=== PATIENT | male | born 1955 | race Hispanic/Latino ===

== ENCOUNTER 2018-02-21 21:26 | Inpatient (IN) | payer MEDICARE ==
[2018-02-21] MEDS ORDERED: DUONEB *Not for PRN Use IH ONE (21:34)
[2018-02-21 21:53] LABS: Basophils # (Auto) 0.1 K/mm3 (0.0-0.1); Basophils % (Auto) 0.4 % (0.0-1.8); Eosinophils # (Auto) 0.1 K/mm3 (0.0-0.4); Hematocrit 33.6 % (35.5-45.6); Lymphocytes % (Auto) 6.6 % (13.4-35.0); Mean Corpuscular HGB Conc 33 % (32-34); Mean Corpuscular Hemoglobin 34 pg (28-32); Mean Corpuscular Volume 103 fl (84-94); Monocytes # (Auto) 0.8 K/mm3 (0.0-0.8); Monocytes % (Auto) 5.6 % (0.0-7.3); Platelet Count 198 K/mm3 (140-440); Red Blood Count 3.25 M/mm3 (3.65-5.03); Red Cell Distribution Width 13.8 % (13.2-15.2)
--- NOTE | 2018-02-21 22:01 | Emergency Department Report ---
HPI - General Chief Complaint: Dyspnea/Respdistress Time Seen by Provider: 02/21/18 21:41 - HPI HPI: 62-year-old male presents to the emergency department via EMS from home with complaint of shortness of breath that he says started about 3 hours prior to presentation. He has a history of insulin-dependent diabetes, hypertension and chronic kidney disease on hemodialysis on Thursday/Thursday/ Thursday. He has not missed any of his dialysis sessions. EMS found the patient to have a pulse ox of about 60 upon arrival. He was given supplemental oxygen and CPAP and it went up to about 81%. He got a facemask when he got here and it went up into the high 90s. He denies any chest pain. He denies any lower extremity swelling. He has not taken anything for her symptoms were presentation. He does not have a an inhaler or nebulizer at home. His director clinical research is Dr. Hernández and his primary care physician is actually an petal cutter, Dr. Wu. ED Past Medical Hx - Past Medical History Previous Medical History?: Yes Hx Hypertension: Yes Hx Diabetes: Yes Hx Renal Disease: Yes (M, W, F) Hx Kidney Stones: Yes Hx Psychiatric Treatment: Yes (Depression, Schizophrenia) - Surgical History Past Surgical History?: Yes Additional Surgical History: AV fistula to right arm - Social History Smoking Status: Never Smoker Substance Use Type: None - Medications Home Medications: Home Medications Medication Instructions Recorded Confirmed Last Taken Type Asenapine Maleate [Saphris] 10 mg SL QPM 11/09/17 02/21/18 11/08/17 History Carvedilol [Coreg] 25 mg PO BID 11/09/17 02/21/18 11/08/17 History Cinacalcet [Sensipar] 30 mg PO QDAY 11/09/17 02/21/18 11/08/17 History Escitalopram Oxalate [Lexapro] 20 mg PO DAILY 11/09/17 02/21/18 11/08/17 History Furosemide [Lasix TAB] 40 mg PO QDAY 11/09/17 02/21/18 11/08/17 History ISOSORBIDE MONOnitrate [Imdur ER] 30 mg PO DAILY 11/09/17 02/21/18 11/08/17 History Insulin Lispro [Humalog 100 30 units SUB-Q BID 11/09/17 02/21/18 11/08/17 History UNITS/ML Kwikpen] Sevelamer Carbonate [Renvela] 2 tab PO TIDWM 11/09/17 02/21/18 11/08/17 History Sodium Bicarbonate 2 tab PO BID 11/09/17 02/21/18 11/08/17 History Sucroferric Oxyhydroxide [Velphoro] 3 tab PO TIDWM 11/09/17 02/21/18 11/08/17 History ED Review of Systems ROS: Stated complaint: AUTUMN Other details as noted in HPI Comment: All other systems reviewed and negative Constitutional: denies: chills, fever Eyes: denies: eye pain, eye discharge, vision change ENT: denies: ear pain, throat pain Respiratory: cough, shortness of breath Cardiovascular: denies: chest pain, palpitations Gastrointestinal: denies: abdominal pain, nausea, diarrhea Genitourinary: denies: urgency, dysuria Musculoskeletal: denies: back pain, joint swelling, arthralgia Skin: denies: rash, lesions Neurological: denies: headache, weakness, paresthesias Physical Exam - Physical Exam Vital Signs: Vital Signs 02/21/18 02/21/18 02/21/18 21:28 21:41 21:43 Temperature 98.7 F Pulse Rate 85 79 Pulse Rate [ 78 Anterior Bilateral Throughout] Respiratory 24 21 Rate Respiratory 30 H Rate [Anterior Bilateral Throughout] Blood Pressure 190/69 O2 Sat by Pulse 81 L 93 Oximetry 02/21/18 02/21/18 21:45 21:56 Temperature Pulse Rate 74 95 H Pulse Rate [ Anterior Bilateral Throughout] Respiratory 37 H 24 Rate Respiratory Rate [Anterior Bilateral Throughout] Blood Pressure 173/60 173/60 O2 Sat by Pulse 99 81 L Oximetry Physical Exam: GENERAL: The patient is well-developed well-nourished. HENT: Normocephalic. Atraumatic. Patient has moist mucous membranes. EYES: Extraocular motions are intact. Pupils equal reactive to light bilaterally. NECK: Supple. Trachea is midline. CHEST/LUNGS: Coarse breath sounds with the chest. There is some tachypnea and accessory muscle use with some conversational dyspnea. There is respiratory distress noted. HEART/CARDIOVASCULAR: Regular. There is no tachycardia. There is no murmur. ABDOMEN: Abdomen is soft, nontender. Patient has normal bowel sounds. There is no abdominal distention. SKIN: There is moderate nonpitting edema to the bilateral lower extremities. NEURO: The patient is awake, alert, and oriented. The patient is cooperative. The patient has no focal neurologic deficits. MUSCULOSKELETAL: There is no tenderness or deformity. There is no evidence of acute injury. ED Course Vital Signs 02/21/18 02/21/18 02/21/18 21:28 21:41 21:43 Temperature 98.7 F Pulse Rate 85 79 Pulse Rate [ 78 Anterior Bilateral Throughout] Respiratory 24 21 Rate Respiratory 30 H Rate [Anterior Bilateral Throughout] Blood Pressure 190/69 O2 Sat by Pulse 81 L 93 Oximetry 02/21/18 02/21/18 21:45 21:56 Temperature Pulse Rate 74 95 H Pulse Rate [ Anterior Bilateral Throughout] Respiratory 37 H 24 Rate Respiratory Rate [Anterior Bilateral Throughout] Blood Pressure 173/60 173/60 O2 Sat by Pulse 99 81 L Oximetry - ABG Interpretation Ph: 7.26 PCO2: 55 PO2: 170 Bicarbonate: 25 Interpretation: respiratory acidosis ED Medical Decision Making - Lab Data Result diagrams: 02/21/18 21:38 02/21/18 21:38 - EKG Data -: EKG Interpreted by Me EKG shows normal: sinus rhythm (sinus arrhythmia), axis, intervals (prolonged CA interval, prolonged QT and QTC), QRS complexes (right bundle-branch block), ST-T waves Rate: normal - EKG Data When compared to previous EKG there are: no significant change Interpretation: unchanged when compared t (11/09/17) - Radiology Data Radiology results: image reviewed interpreted by me: Chest x-ray shows pulmonary vascular congestion but no overt pleural effusions or any obvious pneumonia. - Medical Decision Making Patient presented in some respiratory distress after being found with hypoxia in the 60s. He improved in route but still appeared in some distress upon presentation to the emergency department. He was placed on a nonrebreather and given breathing treatments and started to improve to where he could discuss his symptoms. His oxygen went up into the high 90s. He still had some tachypnea and increased work of breathing so he was placed on a BiPAP machine. With the BiPAP he says he is breathing much better and no longer appears in respiratory distress. His chest x-ray shows some vascular congestion. The patient has a potassium of 6.5 with a BUN of almost 100 and a creatinine of 9.5. For these reasons, I contacted his director clinical research service and spoke with Dr. James will get him dialysis this evening. His ABG shows some respiratory acidosis with hypercapnia. He has some mild hyperglycemia but does not appear to be in diabetic ketoacidosis or HHNK. The patient has been accepted for admission by the hospitalist, Dr Trevino. - Differential Diagnosis CHF, Pneumonia, PE, Asthma Critical Care Time: No Critical care attestation.: If time is entered above; I have spent that time in minutes in the direct care of this critically ill patient, excluding procedure time. ED Disposition Clinical Impression: Hyperkalemia, ESRD needing dialysis, Respiratory distress, Hypoxia, Hypercapnia Volume overload Qualifiers: Hypervolemia type: unspecified Qualified Code(s): E87.70 - Fluid overload, unspecified Disposition: -09 OP ADMIT IP TO THIS HOSP Is pt being admited?: Yes Condition: Fair Referrals: PRIMARY CARE, [Primary Care Provider] - 3-5 Days Time of Disposition: 23:53
[2018-02-21 22:11] LABS: Calcium 8.3 mg/dL (8.4-10.2)
[2018-02-21 22:14] LABS: Alanine Aminotransferase 7 units/L (7-56); Albumin 3.8 g/dL (3.9-5)
[2018-02-21 22:16] LABS: Bilirubin,Direct < 0.2 mg/dL (0-0.2)
--- NOTE | 2018-02-21 22:18 | XRay Report ---
FINAL REPORT EXAM: XR CHEST 1V AP HISTORY: SOB COMPARISON: None available. FINDINGS: Frontal view(s) of the chest obtained. Mild cardiac enlargement. Hazy opacities at the lung bases concerning for mild congestion. Possible trace effusions. No pneumothorax. IMPRESSION: Findings concerning for mild pulmonary congestion.
[2018-02-21] MEDS ORDERED: PROVENTIL IH ONE (22:20)
[2018-02-21] MEDS ORDERED: HumuLIN R IV ONE (22:20)
[2018-02-21] MEDS ORDERED: CALCIUM GLUCONATE 1,000 MG in NACL 0.9% 100 ML IV ONE (22:21)
[2018-02-21] MEDS ORDERED: D50W (25GM) Syringe IV ONE (22:21)
[2018-02-21] MEDS ORDERED: KIONEX PO ONE (22:21)
[2018-02-21] MEDS ORDERED: NACL 0.9% 100 ML IV PRN (22:47)
[2018-02-21 23:59] LABS: Calcium 8.4 mg/dL (8.4-10.2)
[2018-02-22] MEDS ORDERED: ZOFRAN IV PRN (00:29)
[2018-02-22] MEDS ORDERED: PERCOCET 5/325 PO PRN (00:29)
[2018-02-22] MEDS ORDERED: SODIUM CHLORIDE FLUSH SYRINGE 10 ML IV PRN (00:29)
[2018-02-22] MEDS ORDERED: TYLENOL PO PRN (00:29)
[2018-02-22] MEDS ORDERED: D50W (25GM) Syringe IV PRN (00:32)
--- NOTE | 2018-02-22 01:33 | History and Physical Report ---
History of Present Illness Date of examination: 02/22/18 Date of admission: 02/22/18 00:29 Chief complaint: Shortness of breath History of present illness: Patient is a 72 year old male with history of end-stage renal disease on hemodialysis, who was brought to the ED via EMS on account of 4 hours history of worsening shortness of breath. He also admitted to dizziness but no headaches, nausea, vomiting, syncope or loss of consciousness. He denies chest pain, fever, chills, cough, palpitations, leg swelling, orthopnea or PND. No reported history of missed dialysis. When EMS arrived at his home, his oxygen saturation was noted to be at 60, which slightly improved on CPAP. Past History Past Medical History: diabetes, dialysis (on M/W/), ESRD, hypertension, other ( depression and schizophrenia) Past Surgical History: Other (AV fistula in right arm) Social history: smoking (ex-smoker, quitted in 1989. He admits to occasional alcohol use but denies illicit drug use) Family history: other (reviewed and noncontributory) Medications and Allergies Allergies Allergy/AdvReac Type Severity Reaction Status Date / Time No Known Allergies Allergy Verified 11/09/17 07:49 Home Medications Medication Instructions Recorded Confirmed Last Taken Type Asenapine Maleate [Saphris] 10 mg SL QPM 11/09/17 02/21/18 11/08/17 History Carvedilol [Coreg] 25 mg PO BID 11/09/17 02/21/18 11/08/17 History Cinacalcet [Sensipar] 30 mg PO QDAY 11/09/17 02/21/18 11/08/17 History Escitalopram Oxalate [Lexapro] 20 mg PO DAILY 11/09/17 02/21/18 11/08/17 History Furosemide [Lasix TAB] 40 mg PO QDAY 11/09/17 02/21/18 11/08/17 History ISOSORBIDE MONOnitrate [Imdur ER] 30 mg PO DAILY 11/09/17 02/21/18 11/08/17 History Insulin Lispro [Humalog 100 30 units SUB-Q BID 11/09/17 02/21/18 11/08/17 History UNITS/ML Kwikpen] Sevelamer Carbonate [Renvela] 2 tab PO TIDWM 11/09/17 02/21/1811/08/18 History Sodium Bicarbonate 2 tab PO BID 11/09/17 02/21/18 11/08/17 History Sucroferric Oxyhydroxide [Velphoro] 3 tab PO TIDWM 11/09/17 02/21/18 11/08/17 History Active Meds: Active Medications Acetaminophen (Tylenol) 650 mg PO Q4H PRN PRN Reason: Pain MILD(1-3)/Fever >100.5/LEONARD Albuterol/Ipratropium (Duoneb *Not For Prn Use*) 1 ampul IH Q6HRT SACHI Dextrose (D50w (25gm) Syringe) 50 ml IV PRN PRN PRN Reason: Hypoglycemia Heparin Sodium (Porcine) (Heparin) 5,000 unit SUB-Q Q8H SACHI Hydralazine HCl (Apresoline) 10 mg IV Q4H PRN PRN Reason: Blood Pressure Sodium Chloride (Nacl 0.9%) 100 mls @ 999 mls/hr IV BENJAMIN PRN PRN Reason: Hypotension Insulin Glargine (Lantus) 15 units SUB-Q DAILY SACHI Insulin Human Lispro (Humalog) 0 unit SUB-Q ACHS SACHI; Protocol Ondansetron HCl (Zofran) 4 mg IV Q8H PRN PRN Reason: Nausea And Vomiting Oxycodone/Acetaminophen (Percocet 5/325) 1 tab PO Q6H PRN PRN Reason: Pain, Moderate (4-6) Sodium Chloride (Sodium Chloride Flush Syringe 10 Ml) 10 ml IV BID SACHI Sodium Chloride (Sodium Chloride Flush Syringe 10 Ml) 10 ml IV PRN PRN PRN Reason: LINE FLUSH Review of Systems All systems: negative (except as documented in the HPI, all other systems were reviewed and negative.) Exam - Constitutional Vitals: Temp Pulse Resp BP Pulse Ox 98.7 F 56 L 24 145/58 99 02/21/18 21:28 02/22/18 00:30 02/22/18 00:30 02/22/18 00:30 02/22/18 00:30 General appearance: Present: no acute distress, other (on BiPAP) - EENT Eyes: Present: PERRL ENT: hearing intact, clear oral mucosa - Neck Neck: Present: supple, normal ROM - Respiratory Respiratory effort: normal Respiratory: bilateral: diminished, rales - Cardiovascular Rhythm: regular Heart Sounds: Present: S1 & S2. Absent: rub, click - Extremities Extremities: pulses symmetrical Extremity abnormal: edema (in BLE) - Abdominal General gastrointestinal: Present: soft, non-tender, non-distended, normal bowel sounds - Integumentary Integumentary: Present: warm, dry - Musculoskeletal Musculoskeletal: gait normal, strength equal bilaterally - Neurologic Neurologic: CNII-XII intact, moves all extremities Results - Labs CBC & Chem 7: 02/21/18 21:38 02/21/18 23:26 Labs: Laboratory Last Values WBC 14.5 K/mm3 (4.5-11.0) H 02/21/18 21:38 RBC 3.25 M/mm3 (3.65-5.03) L 02/21/18 21:38 Hgb 11.0 gm/dl (11.8-15.2) L 02/21/18 21:38 Hct 33.6 % (35.5-45.6) L 02/21/18 21:38 MCV 103 fl (84-94) H 02/21/18 21:38 MCH 34 pg (28-32) H 02/21/18 21:38 MCHC 33 % (32-34) 02/21/18 21:38 RDW 13.8 % (13.2-15.2) 02/21/18 21:38 Plt Count 198 K/mm3 (140-440) 02/21/18 21:38 Lymph % (Auto) 6.6 % (13.4-35.0) L 02/21/18 21:38 [place] % (Auto) 5.6 % (0.0-7.3) 02/21/18 21:38 Eos % (Auto) 1.0 % (0.0-4.3) 02/21/18 21:38 Baso % (Auto) 0.4 % (0.0-1.8) 02/21/18 21:38 Lymph # 1.0 K/mm3 (1.2-5.4) L 02/21/18 21:38 [place] # 0.8 K/mm3 (0.0-0.8) 02/21/18 21:38 Eos # 0.1 K/mm3 (0.0-0.4) 02/21/18 21:38 Baso # 0.1 K/mm3 (0.0-0.1) 02/21/18 21:38 Seg Neutrophils % 86.4 % (40.0-70.0) H 02/21/18 21:38 Seg Neutrophils # 12.5 K/mm3 (1.8-7.7) H 02/21/18 21:38 D-Dimer 567.27 ng/mlDDU (0-234) H 02/21/18 21:44 POC ABG pH 7.261 (7.35-7.45) L 02/21/18 21:40 POC ABG pCO2 55.6 (35-45) H 02/21/18 21:40 POC ABG pO2 170 (80-105) H 02/21/18 21:40 POC ABG HCO3 25.0 02/21/18 21:40 POC ABG Total CO2 27 02/21/18 21:40 POC ABG O2 Sat 99 02/21/18 21:40 POC ABG Base Excess -2 02/21/18 21:40 FiO2 100 % 02/21/18 21:40 Sodium 142 mmol/L (137-145) 02/21/18 23:26 Potassium 5.9 mmol/L (3.6-5.0) H 02/21/18 23:26 Chloride 100.2 mmol/L (98-107) 02/21/18 23:26 Carbon Dioxide 26 mmol/L (22-30) 02/21/18 23:26 Anion Gap 22 mmol/L 02/21/18 23:26 BUN 56 mg/dL (9-20) H 02/21/18 23:26 Creatinine 8.9 mg/dL (0.8-1.5) H 02/21/18 23:26 Estimated GFR 6 ml/min 02/21/18 23:26 BUN/Creatinine Ratio 6 % 02/21/18 23:26 Glucose 185 mg/dL (75-100) H 02/21/18 23:26 POC Glucose 218 (70-105) H 02/21/18 22:51 Calcium 8.4 mg/dL (8.4-10.2) 02/21/18 23:26 Total Bilirubin 0.40 mg/dL (0.1-1.2) 02/21/18 21:44 Direct Bilirubin < 0.2 mg/dL (0-0.2) 02/21/18 21:44 Indirect Bilirubin 0.2 mg/dL 02/21/18 21:44 AST 11 units/L (5-40) 02/21/18 21:44 ALT 7 units/L (7-56) 02/21/18 21:44 Alkaline Phosphatase 113 units/L (35-129) 02/21/18 21:44 NT-Pro-B Natriuret Pep 68161 pg/mL (0-900) H 02/21/18 21:38 Total Protein 6.8 g/dL (6.3-8.2) 02/21/18 21:44 Albumin 3.8 g/dL (3.9-5) L 02/21/18 21:44 Albumin/Globulin Ratio 1.3 % 02/21/18 21:44 Assessment and Plan Assessment and plan: End-stage renal disease with pulmonary edema -Nephrology consulted for emergency dialysis Acute respiratory failure with hypoxia -On BiPAP -Patient to undergo emergency dialysis Hyperkalemia -Patient received calcium gluconate in the ED which improved his potassium level from 6.5 to 5.9 -He is to undergo emergency dialysis SIRS, likely secondary to non-infectious cause -We will monitor patient clinically Hypertensive emergency with SBP of more than 180 -Patient will be placed on both scheduled and when necessary antihypertensives Insulin-dependent diabetes mellitus type 2 with hyperglycemia -Patient will be placed on basal and prandial insulin regimen Prophylaxis -DVT prophylaxis with heparin 40 minutes spent coordinating care
[2018-02-22] MEDS ORDERED: NACL 0.9% 100 ML IV PRN (01:34)
[2018-02-22] MEDS: DUONEB *Not for PRN Use IH SCH ×4 (03:17→20:39)
[2018-02-22] MEDS ORDERED: NACL 0.9 (PRIMING MACHINE ONLY DIALYSIS) MC ONE (04:05)
[2018-02-22] MEDS: HEPARIN SUB-Q SCH ×3 (05:45→17:26)
[2018-02-22 07:18] LABS: Calcium 8.7 mg/dL (8.4-10.2)
[2018-02-22] MEDS: HumaLOG SUB-Q SCH ×4 (07:30→22:02)
--- NOTE | 2018-02-22 09:17 | Progress Note ---
Assessment and Plan End-stage renal disease with pulmonary edema -Nephrology consulted for emergency dialysis Acute respiratory failure with hypoxia -On BiPAP -Patient to undergo emergency dialysis Hyperkalemia -Patient received calcium gluconate in the ED which improved his potassium level from 6.5 to 5.9 -He is to undergo emergency dialysis SIRS, likely secondary to non-infectious cause -We will monitor patient clinically Hypertensive emergency with SBP of more than 180 -Patient will be placed on both scheduled and when necessary antihypertensives Insulin-dependent diabetes mellitus type 2 with hyperglycemia -SSI - consistent CHO diet Prophylaxis -DVT prophylaxis with heparin Subjective Date of service: 02/22/18 Principal diagnosis: Pul edema from ESRD Interval history: Still short of breath Objective - Constitutional Vitals: Vital Signs - 12hr 02/21/18 02/21/18 02/21/18 21:28 21:41 21:43 Temperature 98.7 F Pulse Rate 85 79 Pulse Rate [ 78 Anterior Bilateral Throughout] Respiratory 24 21 Rate Respiratory 30 H Rate [Anterior Bilateral Throughout] Blood Pressure 190/69 Blood Pressure [Left] O2 Sat by Pulse 81 L 93 Oximetry O2 Sat by Pulse Oximetry [ Posterior Bilateral Bases ] 02/21/18 02/21/18 02/21/18 21:45 21:56 22:00 Temperature Pulse Rate 74 95 H 67 Pulse Rate [ Anterior Bilateral Throughout] Respiratory 37 H 24 30 H Rate Respiratory Rate [Anterior Bilateral Throughout] Blood Pressure 173/60 173/60 173/60 Blood Pressure [Left] O2 Sat by Pulse 99 81 L 99 Oximetry O2 Sat by Pulse Oximetry [ Posterior Bilateral Bases ] 02/21/18 02/21/18 02/21/18 22:15 22:30 22:40 Temperature Pulse Rate 63 61 60 Pulse Rate [ Anterior Bilateral Throughout] Respiratory 19 25 H 20 Rate Respiratory Rate [Anterior Bilateral Throughout] Blood Pressure 144/51 129/48 Blood Pressure 129/48 [Left] O2 Sat by Pulse 97 99 98 Oximetry O2 Sat by Pulse Oximetry [ Posterior Bilateral Bases ] 02/21/18 02/21/18 02/21/18 22:46 23:00 23:16 Temperature Pulse Rate 59 L 57 L 56 L Pulse Rate [ Anterior Bilateral Throughout] Respiratory 30 H 14 19 Rate Respiratory Rate [Anterior Bilateral Throughout] Blood Pressure 123/44 123/44 136/44 Blood Pressure [Left] O2 Sat by Pulse 98 98 99 Oximetry O2 Sat by Pulse Oximetry [ Posterior Bilateral Bases ] 02/21/18 02/21/18 02/21/18 23:30 23:45 23:51 Temperature Pulse Rate 53 L 56 L 56 L Pulse Rate [ Anterior Bilateral Throughout] Respiratory 19 16 23 Rate Respiratory Rate [Anterior Bilateral Throughout] Blood Pressure 136/44 145/55 145/55 Blood Pressure [Left] O2 Sat by Pulse 99 99 99 Oximetry O2 Sat by Pulse Oximetry [ Posterior Bilateral Bases ] 02/22/18 02/22/18 02/22/18 00:00 00:06 00:15 Temperature Pulse Rate 56 L 56 L 56 L Pulse Rate [ Anterior Bilateral Throughout] Respiratory 21 20 23 Rate Respiratory Rate [Anterior Bilateral Throughout] Blood Pressure 147/58 145/55 148/61 Blood Pressure [Left] O2 Sat by Pulse 99 99 99 Oximetry O2 Sat by Pulse Oximetry [ Posterior Bilateral Bases ] 02/22/18 02/22/18 02/22/18 00:30 01:15 01:30 Temperature 98.7 F Pulse Rate 56 L 61 61 Pulse Rate [ Anterior Bilateral Throughout] Respiratory 24 20 Rate Respiratory Rate [Anterior Bilateral Throughout] Blood Pressure 145/58 187/87 165/67 Blood Pressure [Left] O2 Sat by Pulse 99 Oximetry O2 Sat by Pulse 99 Oximetry [ Posterior Bilateral Bases ] 02/22/18 02/22/18 02/22/18 01:45 02:00 02:15 Temperature Pulse Rate 65 60 64 Pulse Rate [ Anterior Bilateral Throughout] Respiratory Rate Respiratory Rate [Anterior Bilateral Throughout] Blood Pressure 163/79 166/75 164/71 Blood Pressure [Left] O2 Sat by Pulse Oximetry O2 Sat by Pulse Oximetry [ Posterior Bilateral Bases ] 02/22/18 02/22/18 02/22/18 02:30 02:45 03:00 Temperature Pulse Rate 59 L 58 L 59 L Pulse Rate [ Anterior Bilateral Throughout] Respiratory Rate Respiratory Rate [Anterior Bilateral Throughout] Blood Pressure 171/78 164/72 163/73 Blood Pressure [Left] O2 Sat by Pulse Oximetry O2 Sat by Pulse Oximetry [ Posterior Bilateral Bases ] 02/22/18 02/22/18 02/22/18 03:15 03:30 03:45 Temperature Pulse Rate 59 L 59 L 58 L Pulse Rate [ Anterior Bilateral Throughout] Respiratory Rate Respiratory Rate [Anterior Bilateral Throughout] Blood Pressure 152/73 157/66 150/71 Blood Pressure [Left] O2 Sat by Pulse Oximetry O2 Sat by Pulse Oximetry [ Posterior Bilateral Bases ] 02/22/18 02/22/18 02/22/18 04:00 04:15 04:45 Temperature 98.1 F Pulse Rate 59 L 60 64 Pulse Rate [ Anterior Bilateral Throughout] Respiratory 16 Rate Respiratory Rate [Anterior Bilateral Throughout] Blood Pressure 143/71 159/69 166/78 Blood Pressure [Left] O2 Sat by Pulse Oximetry O2 Sat by Pulse 28 L Oximetry [ Posterior Bilateral Bases ] 02/22/18 02/22/18 02/22/18 08:12 08:15 08:20 Temperature Pulse Rate Pulse Rate [ 59 L 59 L Anterior Bilateral Throughout] Respiratory Rate Respiratory 20 20 Rate [Anterior Bilateral Throughout] Blood Pressure Blood Pressure [Left] O2 Sat by Pulse 100 Oximetry O2 Sat by Pulse Oximetry [ Posterior Bilateral Bases ] 02/22/18 09:14 Temperature 97.5 F L Pulse Rate 60 Pulse Rate [ Anterior Bilateral Throughout] Respiratory 18 Rate Respiratory Rate [Anterior Bilateral Throughout] Blood Pressure Blood Pressure 169/61 [Left] O2 Sat by Pulse 100 Oximetry O2 Sat by Pulse Oximetry [ Posterior Bilateral Bases ] General appearance: Present: no acute distress, well-nourished - EENT Eyes: PERRL, EOM intact Ears: bilateral: normal - Neck Neck: supple, normal ROM - Respiratory Respiratory effort: normal Respiratory: bilateral: CTA - Cardiovascular Rhythm: regular Heart Sounds: Present: S1 & S2. Absent: gallop, rub Extremities: pulses intact, No edema, normal color, Full ROM - Gastrointestinal General gastrointestinal: Present: soft, non-tender, non-distended, normal bowel sounds - Genitourinary Male genitourinary: normal - Integumentary Integumentary: clear, warm, dry - Musculoskeletal Musculoskeletal: 1, strength equal bilaterally - Neurologic Neurologic: moves all extremities - Psychiatric Psychiatric: memory intact, appropriate mood/affect, intact judgment & insight - Labs CBC & Chem 7: 02/21/18 21:38 02/22/18 06:25 Labs: Abnormal lab results 02/21/18 02/21/18 02/21/18 Range/Units 21:38 21:38 21:40 WBC 14.5 H (4.5-11.0) K/mm3 RBC 3.25 L (3.65-5.03) M/mm3 Hgb 11.0 L (11.8-15.2) gm/dl Hct 33.6 L (35.5-45.6) % MCV 103 H (84-94) fl MCH 34 H (28-32) pg Lymph % (Auto) 6.6 L (13.4-35.0) % Lymph # 1.0 L (1.2-5.4) K/mm3 Seg Neutrophils % 86.4 H (40.0-70.0) % Seg Neutrophils # 12.5 H (1.8-7.7) K/mm3 D-Dimer (0-234) ng/mlDDU POC ABG pH 7.261 L (7.35-7.45) POC ABG pCO2 55.6 H (35-45) POC ABG pO2 170 H (80-105) Potassium 6.5 H* (3.6-5.0) mmol/L Chloride 97.2 L (98-107) mmol/L BUN 53 H (9-20) mg/dL Creatinine 8.3 H (0.8-1.5) mg/dL Glucose 235 H (75-100) mg/dL POC Glucose (70-105) Calcium 8.3 L (8.4-10.2) mg/dL NT-Pro-B Natriuret Pep 09555 H (0-900) pg/mL Albumin (3.9-5) g/dL 02/21/1818 02/21/18 Range/Units 21:44 21:44 22:51 WBC (4.5-11.0) K/mm3 RBC (3.65-5.03) M/mm3 Hgb (11.8-15.2) gm/dl Hct (35.5-45.6) % MCV (84-94) fl MCH (28-32) pg Lymph % (Auto) (13.4-35.0) % Lymph # (1.2-5.4) K/mm3 Seg Neutrophils % (40.0-70.0) % Seg Neutrophils # (1.8-7.7) K/mm3 D-Dimer 567.27 H (0-234) ng/mlDDU POC ABG pH (7.35-7.45) POC ABG pCO2 (35-45) POC ABG pO2 (80-105) Potassium (3.6-5.0) mmol/L Chloride (98-107) mmol/L BUN (9-20) mg/dL Creatinine (0.8-1.5) mg/dL Glucose (75-100) mg/dL POC Glucose 218 H (70-105) Calcium (8.4-10.2) mg/dL NT-Pro-B Natriuret Pep (0-900) pg/mL Albumin 3.8 L (3.9-5) g/dL 02/21/18 02/22/18 02/22/18 Range/Units 23:26 06:05 06:25 WBC (4.5-11.0) K/mm3 RBC (3.65-5.03) M/mm3 Hgb (11.8-15.2) gm/dl Hct (35.5-45.6) % MCV (84-94) fl MCH (28-32) pg Lymph % (Auto) (13.4-35.0) % Lymph # (1.2-5.4) K/mm3 Seg Neutrophils % (40.0-70.0) % Seg Neutrophils # (1.8-7.7) K/mm3 D-Dimer (0-234) ng/mlDDU POC ABG pH (7.35-7.45) POC ABG pCO2 (35-45) POC ABG pO2 (80-105) Potassium 5.9 H (3.6-5.0) mmol/L Chloride 97.3 L (98-107) mmol/L BUN 56 H 33 H (9-20) mg/dL Creatinine 8.9 H 5.8 H (0.8-1.5) mg/dL Glucose 185 H 189 H (75-100) mg/dL POC Glucose 188 H (70-105) Calcium (8.4-10.2) mg/dL NT-Pro-B Natriuret Pep (0-900) pg/mL Albumin (3.9-5) g/dL
[2018-02-22] MEDS: LANTUS SUB-Q SCH (09:50)
[2018-02-22] MEDS: SODIUM CHLORIDE FLUSH SYRINGE 10 ML IV SCH (09:57)
--- NOTE | 2018-02-22 11:29 | Consultation ---
History of Present Illness - Reason for Consult Consult date: 02/22/18 end stage renal disease - History of Present Illness Mr. Cannon is a 62yo with ESRD on HD MWF who presented to the ED with progressive worsening of SOB. Upon arrival to the ED, patient was hypoxic requiring bipap. Labs obtained and patient was hyperkalemic - K 5.9 He is s/p STAT hemodialysis. He reports that his breathing is now comfortable. Mr. Cannon denies chest pain, fever, cough. He is noncomplaint with fluid restriction and frequently has intradialytic weight gains 4-5 liters. Past History Past Medical History: diabetes, dialysis (on M/W/F), ESRD, hypertension, other ( depression and schizophrenia) Past Surgical History: Other (AV fistula in right arm) Social history: smoking (ex-smoker, quitted in 1989. He admits to occasional alcohol use but denies illicit drug use) Family history: other (reviewed and noncontributory) Medications and Allergies Allergies Allergy/AdvReac Type Severity Reaction Status Date / Time No Known Allergies Allergy Verified 11/09/17 07:49 Home Medications Medication Instructions Recorded Confirmed Last Taken Type Asenapine Maleate [Saphris] 10 mg SL QPM 11/09/17 02/21/18 11/08/17 History Carvedilol [Coreg] 25 mg PO BID 11/09/17 02/21/18 11/08/17 History Cinacalcet [Sensipar] 30 mg PO QDAY 11/09/17 02/21/18 11/08/17 History Escitalopram Oxalate [Lexapro] 20 mg PO DAILY 11/09/17 02/21/18 11/08/17 History Furosemide [Lasix TAB] 40 mg PO QDAY 11/09/17 02/21/18 11/08/17 History ISOSORBIDE MONOnitrate [Imdur ER] 30 mg PO DAILY 11/09/17 02/21/18 11/08/17 History Insulin Lispro [Humalog 100 30 units SUB-Q BID 11/09/17 02/21/18 11/08/17 History UNITS/ML Kwikpen] Sevelamer Carbonate [Renvela] 2 tab PO TIDWM 11/09/17 02/21/18 11/08/17 History Sodium Bicarbonate 2 tab PO BID 11/09/17 02/21/1811/08/18 History Sucroferric Oxyhydroxide [Velphoro] 3 tab PO TIDWM 11/09/17 02/21/18 11/08/17 History Active Meds: Active Medications Acetaminophen (Tylenol) 650 mg PO Q4H PRN PRN Reason: Pain MILD(1-3)/Fever >100.5/LEONARD Albuterol/Ipratropium (Duoneb *Not For Prn Use*) 1 ampul IH Q6HRT [facility] Last Admin: 02/22/18 08:12 Dose: 1 ampul Dextrose (D50w (25gm) Syringe) 50 ml IV PRN PRN PRN Reason: Hypoglycemia Heparin Sodium (Porcine) (Heparin) 5,000 unit SUB-Q Q8H [facility] Last Admin: 02/22/18 09:55 Dose: 5,000 unit Hydralazine HCl (Apresoline) 10 mg IV Q4H PRN PRN Reason: Blood Pressure Sodium Chloride (Nacl 0.9%) 100 mls @ 999 mls/hr IV BENJAMIN PRN PRN Reason: Hypotension Insulin Glargine (Lantus) 15 units SUB-Q DAILY [facility] Last Admin: 02/22/18 09:50 Dose: 15 units Insulin Human Lispro (Humalog) 0 unit SUB-Q ACHS [facility]; Protocol Last Admin: 02/22/18 07:30 Dose: 2 unit Ondansetron HCl (Zofran) 4 mg IV Q8H PRN PRN Reason: Nausea And Vomiting Oxycodone/Acetaminophen (Percocet 5/325) 1 tab PO Q6H PRN PRN Reason: Pain, Moderate (4-6) Sodium Chloride (Sodium Chloride Flush Syringe 10 Ml) 10 ml IV BID [facility] Last Admin: 02/22/18 09:57 Dose: 10 ml Sodium Chloride (Sodium Chloride Flush Syringe 10 Ml) 10 ml IV PRN PRN PRN Reason: LINE FLUSH Review of Systems All systems: negative Exam - Vital Signs Vital signs: Vital Signs Temp Pulse Resp BP Pulse Ox 98.7 F 85 24 190/69 81 L 02/21/18 21:28 02/21/18 21:28 02/21/18 21:28 02/21/18 21:28 02/21/18 21:28 - General Appearance General appearance: well-developed, well-nourished EENT: ATNC Respiratory: Clear to Ascultation Heart: regular, S1S2 Gastrointestinal: Present: normal. Absent: tenderness, distended Integumentary: no rash, warm and dry Neurologic: alert and oriented x3 Musculoskeletal: Present: other (trace edema) Psychiatric: mood/affect appropriate, cooperative Results - Lab Results 02/21/18 21:38 02/22/18 06:25 Most recent lab results Calcium 8.7 mg/dL (8.4-10.2) 02/22/18 06:25 Assessment and Plan Impression: * End stage renal disease on HD * Acute hypoxic respiratory failure secondary pulmonary edema * Hyperkalemia * Hypertension * Anemia secondary to ESRD * Secondary hyperparathryoidism * Noncomplicance Plan: * Patient is s/p HD overnight/early am - he now breathing comfortably on room air * Continue MWF schedule and prn * Renal diet * Informed patient of risks of continued noncompliance w/ fluid restriction - respiratory failure requiring intubtation, * Father at bedside
[2018-02-22 15:39] LABS: Hepatitis A Antibody IgM Non-Reactive (NonReactive); Hepatitis B Core IgM Non-Reactive (NonReactive); Hepatitis B Surface Antigen Non-Reactive (Negative); Hepatitis C Virus Antibody Non-Reactive (NonReactive)
[2018-02-23] MEDS: DUONEB *Not for PRN Use IH SCH ×4 (02:32→20:19)
[2018-02-23] MEDS: HEPARIN SUB-Q SCH ×3 (07:03→18:36)
[2018-02-23] MEDS: SODIUM CHLORIDE FLUSH SYRINGE 10 ML IV SCH ×3 (07:04→23:02)
[2018-02-23 07:34] LABS: Basophils % (Auto) 0.5 % (0.0-1.8); Eosinophils # (Auto) 0.1 K/mm3 (0.0-0.4); Eosinophils % (Auto) 1.4 % (0.0-4.3); Hematocrit 30.7 % (35.5-45.6); Hemoglobin 10.7 gm/dl (11.8-15.2); Lymphocytes # (Auto) 1.2 K/mm3 (1.2-5.4); Lymphocytes % (Auto) 18.7 % (13.4-35.0); Mean Corpuscular HGB Conc 35 % (32-34); Mean Corpuscular Hemoglobin 36 pg (28-32); Mean Corpuscular Volume 102 fl (84-94); Monocytes # (Auto) 0.5 K/mm3 (0.0-0.8); Monocytes % (Auto) 8.1 % (0.0-7.3); Platelet Count 134 K/mm3 (140-440); Red Blood Count 3.01 M/mm3 (3.65-5.03); Red Cell Distribution Width 13.7 % (13.2-15.2)
[2018-02-23 07:58] LABS: Albumin 3.6 g/dL (3.9-5); Calcium 8.5 mg/dL (8.4-10.2)
[2018-02-23] MEDS: HumaLOG SUB-Q SCH ×4 (08:00→23:00)
[2018-02-23] MEDS: LANTUS SUB-Q SCH (10:02)
[2018-02-23] MEDS ORDERED: NACL 0.9% 100 ML IV PRN (10:26)
--- NOTE | 2018-02-23 10:27 | Progress Note ---
Assessment and Plan Impression: * End stage renal disease on HD * Acute hypoxic respiratory failure secondary pulmonary edema * Hyperkalemia * Hypertension * Anemia secondary to ESRD * Secondary hyperparathryoidism * Noncomplicance Plan: * Patient is s/p stat HD yesterday * Will plan for HD today * Continue MWF schedule * Renal diet * Patient is aware of risks of continued noncompliance w/ fluid restriction - respiratory failure requiring intubtation, Subjective Date of service: 02/23/18 Principal diagnosis: Pul edema from ESRD Interval history: Patient denies SOB. Objective - Vital Signs Vital signs: Vital Signs - 12hr 02/22/18 02/23/18 02/23/18 23:32 02:34 02:46 Temperature 97.5 F L Pulse Rate 64 Pulse Rate [ 64 74 Posterior Bilateral Bases ] Respiratory 20 Rate Respiratory 16 18 Rate [Posterior Bilateral Bases] Blood Pressure 163/69 O2 Sat by Pulse 93 Oximetry 02/23/18 02/23/18 02/23/18 04:32 04:34 08:24 Temperature 97.7 F Pulse Rate 62 Pulse Rate [ 62 Posterior Bilateral Bases ] Respiratory 20 Rate Respiratory 20 Rate [Posterior Bilateral Bases] Blood Pressure 179/63 O2 Sat by Pulse 95 98 Oximetry 02/23/18 08:34 Temperature Pulse Rate Pulse Rate [ 64 Posterior Bilateral Bases ] Respiratory Rate Respiratory 18 Rate [Posterior Bilateral Bases] Blood Pressure O2 Sat by Pulse Oximetry - General Appearance General appearance: well-developed, well-nourished EENT: ATNC Neck: no JVD Respiratory: Present: Clear to Ascultation Cardiology: regular, S1S2 Gastrointestinal: normal, no tenderness, no distended, obese Integumentary: no rash Neurologic: alert and oriented x3 Musculoskeletal: other (no edema) Psychiatric: cooperative - Lab 02/24/18 06:19 02/24/18 06:19 Most recent lab results Calcium 8.5 mg/dL (8.4-10.2) 02/23/18 07:04
--- NOTE | 2018-02-23 14:06 | Progress Note ---
Assessment and Plan Assessment and plan: Patient is a 72 year old male with history of end-stage renal disease on hemodialysis, who was brought to the ED via EMS on account of 4 hours history of worsening shortness of breath End-stage renal disease with pulmonary edema -Nephrology consulted for emergency dialysis Acute respiratory failure with hypoxia -On BiPAP -Patient to undergo emergency dialysis Hyperkalemia -Patient received calcium gluconate in the ED which improved his potassium level from 6.5 to 5.9 -He is to undergo emergency dialysis SIRS, likely secondary to non-infectious cause -We will monitor patient clinically Hypertensive emergency with SBP of more than 180 -Patient will be placed on both scheduled and when necessary antihypertensives Insulin-dependent diabetes mellitus type 2 with hyperglycemia -SSI - consistent CHO diet Prophylaxis -DVT prophylaxis with heparin Hospitalist Physical - Constitutional Vitals: Temp Pulse Resp BP Pulse Ox 98.0 F 61 20 184/72 98 02/23/18 11:00 02/23/18 14:00 02/23/18 11:00 02/23/18 14:00 02/23/18 08:24 General appearance: Present: no acute distress, well-nourished Results - Labs CBC & Chem 7: 02/23/18 07:04 02/23/18 07:04 Labs: Laboratory Last Values WBC 6.3 K/mm3 (4.5-11.0) 02/23/18 07:04 RBC 3.01 M/mm3 (3.65-5.03) L 02/23/18 07:04 Hgb 10.7 gm/dl (11.8-15.2) L 02/23/18 07:04 Hct 30.7 % (35.5-45.6) L 02/23/18 07:04 MCV 102 fl (84-94) H 02/23/18 07:04 MCH 36 pg (28-32) H 02/23/18 07:04 MCHC 35 % (32-34) H 02/23/18 07:04 RDW 13.7 % (13.2-15.2) 02/23/18 07:04 Plt Count 134 K/mm3 (140-440) L 02/23/18 07:04 Lymph % (Auto) 18.7 % (13.4-35.0) 02/23/18 07:04 [place] % (Auto) 8.1 % (0.0-7.3) H 02/23/18 07:04 Eos % (Auto) 1.4 % (0.0-4.3) 02/23/18 07:04 Baso % (Auto) 0.5 % (0.0-1.8) 02/23/18 07:04 Lymph # 1.2 K/mm3 (1.2-5.4) 02/23/18 07:04 [place] # 0.5 K/mm3 (0.0-0.8) 02/23/18 07:04 Eos # 0.1 K/mm3 (0.0-0.4) 02/23/18 07:04 Baso # 0.0 K/mm3 (0.0-0.1) 02/23/18 07:04 Seg Neutrophils % 71.3 % (40.0-70.0) H 02/23/18 07:04 Seg Neutrophils # 4.5 K/mm3 (1.8-7.7) 02/23/18 07:04 D-Dimer 567.27 ng/mlDDU (0-234) H 02/21/18 21:44 POC ABG pH 7.261 (7.35-7.45) L 02/21/18 21:40 POC ABG pCO2 55.6 (35-45) H 02/21/18 21:40 POC ABG pO2 170 (80-105) H 02/21/18 21:40 POC ABG HCO3 25.0 02/21/18 21:40 POC ABG Total CO2 27 02/21/18 21:40 POC ABG O2 Sat 99 02/21/18 21:40 POC ABG Base Excess -2 02/21/18 21:40 FiO2 100 % 02/21/18 21:40 Sodium 138 mmol/L (137-145) 02/23/18 07:04 Potassium 5.5 mmol/L (3.6-5.0) H 02/23/18 07:04 Chloride 96.1 mmol/L (98-107) L 02/23/18 07:04 Carbon Dioxide 23 mmol/L (22-30) 02/23/18 07:04 Anion Gap 24 mmol/L 02/23/18 07:04 BUN 55 mg/dL (9-20) H 02/23/18 07:04 Creatinine 7.7 mg/dL (0.8-1.5) H 02/23/18 07:04 Estimated GFR 7 ml/min 02/23/18 07:04 BUN/Creatinine Ratio 7 % 02/23/18 07:04 Glucose 145 mg/dL (75-100) H 02/23/18 07:04 POC Glucose 166 (70-105) H 02/23/18 06:27 Calcium 8.5 mg/dL (8.4-10.2) 02/23/18 07:04 Total Bilirubin 0.40 mg/dL (0.1-1.2) 02/23/18 07:04 Direct Bilirubin < 0.2 mg/dL (0-0.2) 02/21/18 21:44 Indirect Bilirubin 0.2 mg/dL 02/21/18 21:44 AST 8 units/L (5-40) 02/23/18 07:04 ALT 6 units/L (7-56) L 02/23/18 07:04 Alkaline Phosphatase 99 units/L (35-129) 02/23/18 07:04 NT-Pro-B Natriuret Pep 82442 pg/mL (0-900) H 02/21/18 21:38 Total Protein 6.4 g/dL (6.3-8.2) 02/23/18 07:04 Albumin 3.6 g/dL (3.9-5) L 02/23/18 07:04 Albumin/Globulin Ratio 1.3 % 02/23/18 07:04 Hepatitis A IgM Ab Non-reactive (NonReactive) 02/22/18 06:25 Hep Bs Antigen Non-reactive (Negative) 02/22/18 06:25 Hep B Core IgM Ab Non-reactive (NonReactive) 02/22/18 06:25 Hepatitis C Antibody Non-reactive (NonReactive) 02/22/18 06:25
[2018-02-23] MEDS ORDERED: NACL 0.9 (PRIMING MACHINE ONLY DIALYSIS) MC ONE (14:48)
[2018-02-23] MEDS: PROCARDIA XL PO SCH (15:12)
[2018-02-23] MEDS ORDERED: NON-FORMULARY (Sevelamer Carbonate [Renvela] 2 TAB) PO SCH (17:00)
[2018-02-23] MEDS ORDERED: SUCROFERRIC OXYHYDROXIDE PO SCH (17:00)
[2018-02-23] MEDS ORDERED: ASENAPINE MALEATE 10 MG SL SCH (18:00)
[2018-02-23] MEDS ORDERED: SODIUM BICARBONATE PO SCH (22:00)
[2018-02-23] MEDS: RENVELA PO SCH (23:00)
[2018-02-23] MEDS: SODIUM BICARBONATE PO SCH (23:00)
[2018-02-23] MEDS: APRESOLINE IV PRN (23:30)
[2018-02-24] MEDS: HEPARIN SUB-Q SCH ×3 (00:45→16:42)
[2018-02-24] MEDS: APRESOLINE IV PRN (05:05)
[2018-02-24] MEDS: DUONEB *Not for PRN Use IH SCH ×3 (06:06→08:38)
[2018-02-24 06:48] LABS: Basophils % (Auto) 0.6 % (0.0-1.8); Eosinophils # (Auto) 0.1 K/mm3 (0.0-0.4); Eosinophils % (Auto) 2.2 % (0.0-4.3); Hematocrit 30.8 % (35.5-45.6); Hemoglobin 10.8 gm/dl (11.8-15.2); Lymphocytes % (Auto) 20.5 % (13.4-35.0); Mean Corpuscular HGB Conc 35 % (32-34); Mean Corpuscular Hemoglobin 35 pg (28-32); Mean Corpuscular Volume 101 fl (84-94); Monocytes # (Auto) 0.6 K/mm3 (0.0-0.8); Platelet Count 142 K/mm3 (140-440); Red Blood Count 3.06 M/mm3 (3.65-5.03); Red Cell Distribution Width 13.6 % (13.2-15.2)
[2018-02-24 07:10] LABS: Albumin 3.5 g/dL (3.9-5); BUN/Creatinine Ratio 6; Blood Urea Nitrogen 37 mg/dL (9-20); Hemolysis Index 5
[2018-02-24 07:12] LABS: Alanine Aminotransferase < 5 units/L (7-56)
[2018-02-24] MEDS: HumaLOG SUB-Q SCH ×3 (07:30→17:56)
--- NOTE | 2018-02-24 08:30 | Progress Note ---
Assessment and Plan Impression: * End stage renal disease on HD * Acute hypoxic respiratory failure secondary pulmonary edema * Hyperkalemia * Hypertension * Anemia secondary to ESRD * Secondary hyperparathryoidism * Noncomplicance Plan: * Continue MWF schedule * UF as tolerated * Renal diet * Patient is aware of risks of continued noncompliance w/ fluid restriction - respiratory failure requiring intubtation, * Patient is stable for d/c from a renal standpoint Subjective Date of service: 02/24/18 Principal diagnosis: Pul edema from ESRD Interval history: Patient has no complaints today Objective - Vital Signs Vital signs: Vital Signs - 12hr 02/23/18 02/23/18 02/23/18 20:38 22:00 23:30 Temperature 98.5 F Pulse Rate 69 75 Pulse Rate [ 74 Radial] Respiratory 18 18 Rate Blood Pressure 163/54 169/55 O2 Sat by Pulse 94 Oximetry 02/24/18 02/24/18 00:12 04:25 Temperature 98.0 F 98.0 F Pulse Rate 74 71 Pulse Rate [ Radial] Respiratory 18 20 Rate Blood Pressure 171/57 186/73 O2 Sat by Pulse 96 94 Oximetry - General Appearance General appearance: well-developed, well-nourished EENT: ATNC Respiratory: Present: Clear to Ascultation Cardiology: regular, S1S2 Gastrointestinal: normal, no tenderness, no distended Integumentary: no rash, warm and dry Neurologic: no focal deficit Musculoskeletal: other (no edema) Psychiatric: cooperative - Lab 02/24/18 06:19 02/24/18 06:19 Most recent lab results Calcium 9.0 mg/dL (8.4-10.2) 02/24/18 06:19
[2018-02-24] MEDS ORDERED: NACL 0.9% 100 ML IV PRN (08:31)
[2018-02-24] MEDS ORDERED: LEXAPRO PO SCH (10:00)
[2018-02-24] MEDS ORDERED: IMDUR PO SCH (10:00)
[2018-02-24] MEDS ORDERED: SENSIPAR PO SCH ×2 (10:00)
[2018-02-24] MEDS ORDERED: NON-FORMULARY (Escitalopram Oxalate [Lexapro] 20 MG) PO SCH (10:00)
[2018-02-24] MEDS ORDERED: NACL 0.9% 1000 ML 2,000 ML ONE (11:27)
[2018-02-24] MEDS: PROCARDIA XL PO SCH (15:43)
[2018-02-24] MEDS: RENVELA PO SCH (15:43)
[2018-02-24] MEDS: SODIUM BICARBONATE PO SCH (15:44)
[2018-02-24] MEDS: SODIUM CHLORIDE FLUSH SYRINGE 10 ML IV SCH (15:53)
[2018-02-24] MEDS ORDERED: CATAPRES PO SCH (16:23)
--- NOTE | 2018-02-24 17:38 | Discharge Summary ---
Providers - Providers Date of Admission: 02/22/18 00:29 Attending physician: CRICKET PRO MD 02/21/18 22:41 Consult to Physician [CONS] Routine Comment: Consulting Provider: DORI VICKERS Physician Instructions: Reason For Exam: dialysis, hyperkalemia Primary care physician: DENTAL CERAMIST Hospitalization Condition: Fair Hospital course: Patient is a 72 year old male with history of end-stage renal disease on hemodialysis, who was brought to the ED via EMS on account of 4 hours history of worsening shortness of breath End-stage renal disease with pulmonary edema -Nephrology consulted for emergency dialysis Acute respiratory failure with hypoxia -On BiPAP -Patient to undergo emergency dialysis Hyperkalemia -Patient received calcium gluconate in the ED which improved his potassium level from 6.5 to 5.9 -He is to undergo emergency dialysis SIRS, likely secondary to non-infectious cause -We will monitor patient clinically Hypertensive emergency with SBP of more than 180 -Patient will be placed on both scheduled and when necessary antihypertensives Insulin-dependent diabetes mellitus type 2 with hyperglycemia -SSI - consistent CHO diet Prophylaxis -DVT prophylaxis with heparin Disposition: DC-01 TO HOME OR SELFCARE Time spent for discharge: 33 minutes Core Measure Documentation - Palliative Care Palliative Care/ Comfort Measures: Not Applicable - Core Measures Any of the following diagnoses?: none Exam - Constitutional Vitals: Temp Pulse Resp BP Pulse Ox 98.1 F 69 16 195/83 94 02/24/18 12:35 02/24/18 12:35 02/24/18 12:35 02/24/18 12:35 02/24/18 04:25 General appearance: Present: no acute distress, well-nourished - EENT Eyes: Present: PERRL ENT: hearing intact, clear oral mucosa - Neck Neck: Present: supple, normal ROM - Respiratory Respiratory effort: normal Respiratory: bilateral: CTA - Cardiovascular Heart Sounds: Present: S1 & S2. Absent: rub, click - Extremities Extremities: pulses symmetrical, No edema Peripheral Pulses: within normal limits - Abdominal General gastrointestinal: Present: soft, non-tender, non-distended, normal bowel sounds Male genitourinary: Present: normal - Integumentary Integumentary: Present: clear, warm, dry - Musculoskeletal Musculoskeletal: gait normal, strength equal bilaterally - Psychiatric Psychiatric: appropriate mood/affect, intact judgment & insight - Neurologic Neurologic: CNII-XII intact, moves all extremities Plan Follow up with: PRIMARY CARE, [Primary Care Provider] - 3-5 Days Prescriptions: cloNIDine [Catapres] 0.1 mg PO Q12HR #60 tablet Insulin Glargine [Lantus VIAL] 15 units SUB-Q DAILY #1000 units NIFEdipine XL [Procardia Xl] 60 mg PO QDAY #30 tablet
[2018-02-24] MEDS: LANTUS SUB-Q SCH (17:55)
[2018-02-24 18:13] VITALS: BP 160/66
== END 2018-02-24 19:10 | disposition home or self-care (01) | DRG 682 ==
LOC: ED 21:26 → 4A 02-22 00:29
PROVIDERS: ADMIT Internal Medicine; ATTEND Internal Medicine
PROC: 4A033R1 Measurement of Arterial Saturation, Peripheral, Percutaneous Approach (ICD-10-PCS; principal; 2018-02-21)
PROC: 5A09357 Assistance with Respiratory Ventilation, Less than 24 Consecutive Hours, Continuous Positive Airway Pressure (ICD-10-PCS; 2018-02-21)
PROC: 5A1D70Z Performance of Urinary Filtration, Intermittent, Less than 6 Hours Per Day (ICD-10-PCS; 2018-02-22)
PROC: 5A1D70Z Performance of Urinary Filtration, Intermittent, Less than 6 Hours Per Day (ICD-10-PCS; 2018-02-23)
PROC: 5A1D70Z Performance of Urinary Filtration, Intermittent, Less than 6 Hours Per Day (ICD-10-PCS; 2018-02-24)
DX: I12.0 Hypertensive chronic kidney disease with stage 5 chronic kidney disease or end stage renal disease (principal); J96.01 Acute respiratory failure with hypoxia; N18.6 End stage renal disease; J96.02 Acute respiratory failure with hypercapnia; R65.10 Systemic inflammatory response syndrome (SIRS) of non-infectious origin without acute organ dysfunction; I16.1 Hypertensive emergency; J81.1 Chronic pulmonary edema; N25.81 Secondary hyperparathyroidism of renal origin; E11.22 Type 2 diabetes mellitus with diabetic chronic kidney disease; Z99.2 Dependence on renal dialysis; F20.9 Schizophrenia, unspecified; E87.5 Hyperkalemia; E87.70 Fluid overload, unspecified; E11.65 Type 2 diabetes mellitus with hyperglycemia; D63.1 Anemia in chronic kidney disease; Z91.14 Patient's other noncompliance with medication regimen; Z79.4 Long term (current) use of insulin
CPT/HCPCS: 36415; 71045; 80048; 80053; 80074; 82803; 82962; 83880; 85025; 85379; 93005; 93010; 94640; 94760; 96374; 96375; J0360; J0610; J1644; J1815; J7030

== ENCOUNTER 2018-03-02 09:35 | Inpatient (IN) | payer MEDICARE ==
[2018-03-02 10:35] LABS: Basophils % (Auto) 0.4 % (0.0-1.8); Eosinophils # (Auto) 0.1 K/mm3 (0.0-0.4); Hematocrit 33.8 % (35.5-45.6); Hemoglobin 10.9 gm/dl (11.8-15.2); Lymphocytes # (Auto) 0.5 K/mm3 (1.2-5.4); Lymphocytes % (Auto) 5.8 % (13.4-35.0); Mean Corpuscular HGB Conc 32 % (32-34); Mean Corpuscular Hemoglobin 33 pg (28-32); Mean Corpuscular Volume 104 fl (84-94); Monocytes # (Auto) 0.4 K/mm3 (0.0-0.8); Monocytes % (Auto) 4.6 % (0.0-7.3); Platelet Count 199 K/mm3 (140-440); Red Blood Count 3.26 M/mm3 (3.65-5.03); Red Cell Distribution Width 13.5 % (13.2-15.2)
[2018-03-02] MEDS ORDERED: NITROSTAT SL ONE (10:38)
[2018-03-02] MEDS ORDERED: NITRO-BID 2% TP ONE (10:38)
[2018-03-02] MEDS ORDERED: LASIX IV ONE (10:43)
[2018-03-02 10:58] LABS: Albumin 3.8 g/dL (3.9-5); Calcium 8.6 mg/dL (8.4-10.2)
--- NOTE | 2018-03-02 10:59 | Emergency Department Report ---
ED General Adult HPI - General Chief complaint: Dyspnea/Respdistress Stated complaint: FLUID OVERLOAD Time Seen by Provider: 03/02/18 10:36 Source: patient Mode of arrival: Ambulatory Limitations: No Limitations - History of Present Illness Initial comments: 62-year-old male history of end-stage disease goes m,w,f. missed yest plumbing down, here states needs acute hd, no other c/o, mild sob no pain no fevber no cp no abd c/o, no focal neuro c/o -: Gradual, unknown Radiation: non-radiation Severity scale (0 -10): 2 Associated Symptoms: denies other symptoms, shortness of breath, weakness. denies: confusion, chest pain, cough, diaphoresis, fever/chills, headaches, loss of appetite, nausea/vomiting, rash, seizure, syncope - Related Data Home Medications Medication Instructions Recorded Confirmed Last Taken Asenapine Maleate [Saphris] 10 mg SL QPM 11/09/17 02/21/18 11/08/17 Cinacalcet [Sensipar] 30 mg PO QDAY 11/09/17 02/21/18 11/08/17 Escitalopram Oxalate [Lexapro] 20 mg PO DAILY 11/09/17 02/21/18 11/08/17 Furosemide [Lasix TAB] 40 mg PO QDAY 11/09/17 02/21/18 11/08/17 ISOSORBIDE MONOnitrate [Imdur ER] 30 mg PO DAILY 11/09/17 02/21/18 11/08/17 Sevelamer Carbonate [Renvela] 2 tab PO TIDWM 11/09/17 02/21/18 11/08/17 Sodium Bicarbonate 2 tab PO BID 11/09/17 02/21/18 11/08/17 Sucroferric Oxyhydroxide [Velphoro] 3 tab PO TIDWM 11/09/17 02/21/18 11/08/17 Previous Rx's Medication Instructions Recorded Last Taken Type Insulin Glargine [Lantus VIAL] 15 units SUB-Q DAILY #1000 units 02/24/18 Unknown Rx NIFEdipine XL [Procardia Xl] 60 mg PO QDAY #30 tablet 02/24/18 Unknown Rx cloNIDine [Catapres] 0.1 mg PO Q12HR #60 tablet 02/24/18 Unknown Rx Allergies Allergy/AdvReac Type Severity Reaction Status Date / Time No Known Allergies Allergy Verified 11/09/17 07:49 ED Review of Systems ROS: Stated complaint: FLUID OVERLOAD Other details as noted in HPI Comment: All other systems reviewed and negative Constitutional: denies: diaphoresis, fever, malaise ENT: denies: dental pain, hearing loss, epistaxis Respiratory: shortness of breath. denies: SOB with exertion, SOB at rest, stridor, wheezing Cardiovascular: dyspnea on exertion, orthopnea, edema. denies: chest pain, palpitations, syncope, paroxysmal nocturnal dyspnea Gastrointestinal: denies: abdominal pain, nausea, vomiting, diarrhea, constipation, hematemesis, melena, hematochezia Neurological: denies: headache, weakness, numbness, paresthesias, abnormal gait , vertigo ED Past Medical Hx - Past Medical History Hx Hypertension: Yes Hx Diabetes: Yes Hx Renal Disease: Yes (M, W, F) Hx Kidney Stones: Yes Hx Psychiatric Treatment: Yes (Depression, Schizophrenia) - Surgical History Additional Surgical History: AV fistula to right arm - Social History Smoking Status: Former Smoker Substance Use Type: None - Medications Home Medications: Home Medications Medication Instructions Recorded Confirmed Last Taken Type Asenapine Maleate [Saphris] 10 mg SL QPM 11/09/17 02/21/18 11/08/17 History Cinacalcet [Sensipar] 30 mg PO QDAY 11/09/17 02/21/18 11/08/17 History Escitalopram Oxalate [Lexapro] 20 mg PO DAILY 11/09/17 02/21/18 11/08/17 History Furosemide [Lasix TAB] 40 mg PO QDAY 11/09/17 02/21/18 11/08/17 History ISOSORBIDE MONOnitrate [Imdur ER] 30 mg PO DAILY 11/09/17 02/21/18 11/08/17 History Sevelamer Carbonate [Renvela] 2 tab PO TIDWM 11/09/17 02/21/18 11/08/17 History Sodium Bicarbonate 2 tab PO BID 11/09/17 02/21/18 11/08/17 History Sucroferric Oxyhydroxide [Velphoro] 3 tab PO TIDWM 11/09/17 02/21/18 11/08/17 History Insulin Glargine [Lantus VIAL] 15 units SUB-Q DAILY #1000 units 02/24/18 Unknown Rx NIFEdipine XL [Procardia Xl] 60 mg PO QDAY #30 tablet 02/24/18 Unknown Rx cloNIDine [Catapres] 0.1 mg PO Q12HR #60 tablet 02/24/18 Unknown Rx ED Physical Exam - General Limitations: No Limitations General appearance: alert, anxious, other (mild to moderate increased work of breathing) - Head Head exam: Present: atraumatic, normocephalic - Eye Eye exam: Present: normal appearance, PERRL, EOMI - ENT ENT exam: Present: normal exam, normal orophraynx - Neck Neck exam: Present: normal inspection. Absent: tenderness, meningismus - Respiratory Respiratory exam: Present: respiratory distress - Cardiovascular Cardiovascular Exam: Present: regular rate, normal rhythm - GI/Abdominal GI/Abdominal exam: Present: soft. Absent: tenderness, guarding, rebound, rigid , mass, bruit, pulsatile mass - Extremities Exam Extremities exam: Present: normal capillary refill, pedal edema - Back Exam Back exam: Absent: tenderness, CVA tenderness (R) - Neurological Exam Neurological exam: Present: alert, oriented X3, CN II-XII intact. Absent: motor sensory deficit - Psychiatric Psychiatric exam: Present: normal affect - Skin Skin exam: Absent: erythema ED Course Vital Signs 03/02/18 03/02/18 03/02/18 09:39 10:33 10:35 Temperature 97.4 F L Pulse Rate 81 68 Respiratory 22 31 H Rate Blood Pressure 182/65 155/65 O2 Sat by Pulse 86 91 92 Oximetry 03/02/18 03/02/18 03/02/18 10:40 10:45 10:50 Temperature Pulse Rate 68 68 67 Respiratory 23 25 H 29 H Rate Blood Pressure 155/65 161/69 161/69 O2 Sat by Pulse 96 96 97 Oximetry 03/02/18 03/02/18 03/02/18 10:56 11:00 11:06 Temperature Pulse Rate 66 66 66 Respiratory 22 14 21 Rate Blood Pressure 161/69 161/69 149/61 O2 Sat by Pulse 98 96 97 Oximetry 03/02/18 03/02/18 03/02/18 11:10 11:15 11:32 Temperature Pulse Rate 65 63 Respiratory 20 20 12 Rate Blood Pressure 149/61 154/72 176/65 O2 Sat by Pulse 97 99 Oximetry 03/02/18 11:39 Temperature Pulse Rate 66 Respiratory Rate Blood Pressure 161/69 O2 Sat by Pulse Oximetry - Reevaluation(s) Reevaluation #1: 03/02/18 11:01 Marlin Hernández states admit hospitalist they will dialyze patient was given nitrates and Lasix in the ED will discuss with hospitalist for admit ED Medical Decision Making - Lab Data Result diagrams: 03/02/18 10:16 03/02/18 10:16 - EKG Data -: EKG Interpreted by Me EKG shows normal: sinus rhythm - EKG Data When compared to previous EKG there are: no significant change Interpretation: other (no acute sttchanges, no QRS widening, mild T wave peaking ) - Radiology Data Radiology results: image reviewed - Medical Decision Making Mild congestion on chest x-ray, ARIANA patient was symptomatic in ED we did therefore discuss case with Dr. Hernández and the mid-level who did his symptoms should admit for hemodialysis, he does not have evidence of QRS problems and I discussed case struck very for admitted for hemodialysis patient with mild to moderate shortness of breath with missed dialysis and elevated potassium Critical care attestation.: If time is entered above; I have spent that time in minutes in the direct care of this critically ill patient, excluding procedure time. ED Disposition Clinical Impression: Respiratory distress, End stage renal disease Volume overload Qualifiers: Hypervolemia type: unspecified Qualified Code(s): E87.70 - Fluid overload, unspecified Disposition: OP ADMIT IP TO THIS HOSP Is pt being admited?: Yes Condition: Stable Time of Disposition: 12:01
--- NOTE | 2018-03-02 11:37 | XRay Report ---
AP CHEST: HISTORY: End-stage renal disease Cardiomegaly and pulmonary venous congestion have increased slightly since 02/21/18. Small left pleural effusion is suspected. No gross infiltrate or pneumothorax. IMPRESSION: Mild volume overload.
[2018-03-02] MEDS ORDERED: SODIUM CHLORIDE FLUSH SYRINGE 10 ML IV PRN (11:42)
[2018-03-02] MEDS ORDERED: PROVENTIL IH PRN (11:42)
[2018-03-02] MEDS ORDERED: TYLENOL PO PRN (11:42)
[2018-03-02] MEDS ORDERED: ZOFRAN IV PRN (11:42)
--- NOTE | 2018-03-02 11:42 | History and Physical Report ---
History of Present Illness Chief complaint: I missed dialysis History of present illness: 62 YO Male with ESRD on HD(M,W,F),DM, Depression, HTN, Schizophrenia presents to ED for evaluation. Pt states that he has experienced shortness of breath for the past 2 days with worsening symptoms over the past 1 day. Pt states that he missed dialysis on thursday. Pt denies fever, chills, CP, Palpitations, NVD, Syncope, Orthopnea, PND, Productive cough, BRBPR, Unintentional weight loss, night sweats, or recent ill contacts. Pt seen and evaluated in ED and found to have ESRD, as well and Acute Respiratory Failure. Pt treated with supplemental oxygen, and urgent dialysis. Nephrology consulted in ED. Past History Past Medical History: diabetes, ESRD, hypertension Past Surgical History: Other (RUE AVF) Social history: . denies: smoking, alcohol abuse, prescription drug abuse Family history: hypertension Medications and Allergies Allergies Allergy/AdvReac Type Severity Reaction Status Date / Time No Known Allergies Allergy Verified 11/09/17 07:49 Home Medications Medication Instructions Recorded Confirmed Last Taken Type Asenapine Maleate [Saphris] 10 mg SL QPM 11/09/17 03/02/18 11/08/17 History Cinacalcet [Sensipar] 30 mg PO QDAY 11/09/17 03/02/18 11/08/17 History Escitalopram Oxalate [Lexapro] 20 mg PO DAILY 11/09/17 03/02/18 11/08/17 History Furosemide [Lasix TAB] 40 mg PO QDAY 11/09/17 03/02/18 11/08/17 History ISOSORBIDE MONOnitrate [Imdur ER] 30 mg PO DAILY 11/09/17 03/02/18 11/08/17 History Sevelamer Carbonate [Renvela] 2 tab PO TIDWM 11/09/17 03/02/18 11/08/17 History Sodium Bicarbonate 2 tab PO BID 11/09/17 03/02/18 11/08/17 History Sucroferric Oxyhydroxide [Velphoro] 3 tab PO TIDWM 11/09/17 03/02/18 11/08/17 History Insulin Glargine [Lantus VIAL] 15 units SUB-Q DAILY #1000 units 02/24/18 Unknown Rx NIFEdipine XL [Procardia Xl] 60 mg PO QDAY #30 tablet 02/24/18 03/02/18 Unknown Rx cloNIDine [Catapres] 0.1 mg PO Q12HR #60 tablet 02/24/18 03/02/18 Unknown Rx Review of Systems Constitutional: no weight loss, no weight gain, no fever, no chills Ears, nose, mouth and throat: no ear pain, no ear discharge, no tinnitis, no decreased hearing, no nose pain, no nasal congestion, no nasal discharge Cardiovascular: no chest pain, no orthopnea, no palpitations, no rapid/ irregular heart beat, no edema, no syncope Respiratory: shortness of breath, no cough, no cough with sputum, no excessive sputum, no hemoptysis Gastrointestinal: no abdominal pain, no nausea, no vomiting, no diarrhea, no constipation Genitourinary Male: no dysuria, no hematuria, no flank pain, no discharge, no urinary frequency, no urinary hesitancy, no nocturia Musculoskeletal: no neck stiffness, no neck pain, no shooting arm pain, no arm numbness/tingling, no low back pain, no shooting leg pain Integumentary: no rash, no pruritis, no redness, no sores, no wounds, no jaundice, no boils Neurological: no transient paralysis, no paralysis, no weakness, no parathesias , no numbness, no tingling Psychiatric: no anxiety, no memory loss, no change in sleep habits, no sleep disturbances, no insomnia Endocrine: no cold intolerance, no heat intolerance, no polyphagia, no excessive thirst, no polydipsia, no polyuria, no nocturia Hematologic/Lymphatic: no easy bruising, no easy bleeding, no lymphadenopathy, no lymphedema Allergic/Immunologic: no urticaria, no allergic rhinitis, no wheezing, no persistent infections Exam - Constitutional Vitals: Temp Pulse Resp BP Pulse Ox 97.4 F L 66 12 161/69 99 03/02/18 09:39 03/02/18 11:39 03/02/18 11:32 03/02/18 11:39 03/02/18 11:15 General appearance: Present: mild distress - EENT Eyes: Present: PERRL ENT: hearing intact, clear oral mucosa - Neck Neck: Present: supple, normal ROM - Respiratory Respiratory effort: normal Respiratory: bilateral: diminished - Cardiovascular Heart Sounds: Present: S1 & S2. Absent: rub, click - Extremities Extremities: pulses symmetrical, No edema Peripheral Pulses: within normal limits - Abdominal General gastrointestinal: Present: soft, non-tender, non-distended, normal bowel sounds Male genitourinary: Present: normal - Integumentary Integumentary: Present: clear, warm, dry - Musculoskeletal Musculoskeletal: gait normal, strength equal bilaterally - Psychiatric Psychiatric: appropriate mood/affect, intact judgment & insight - Neurologic Neurologic: CNII-XII intact, moves all extremities Results - Labs CBC & Chem 7: 03/02/18 10:16 03/02/18 10:16 Labs: Abnormal lab results 03/02/18 03/02/18 Range/Units 10:16 10:16 RBC 3.26 L (3.65-5.03) M/mm3 Hgb 10.9 L (11.8-15.2) gm/dl Hct 33.8 L (35.5-45.6) % MCV 104 H (84-94) fl MCH 33 H (28-32) pg Lymph % (Auto) 5.8 L (13.4-35.0) % Lymph # 0.5 L (1.2-5.4) K/mm3 Seg Neutrophils % 88.2 H (40.0-70.0) % Seg Neutrophils # 8.1 H (1.8-7.7) K/mm3 Potassium 5.8 H (3.6-5.0) mmol/L Carbon Dioxide 20 L (22-30) mmol/L BUN 57 H (9-20) mg/dL Creatinine 9.6 H (0.8-1.5) mg/dL Glucose 182 H (75-100) mg/dL Albumin 3.8 L (3.9-5) g/dL Assessment and Plan - Patient Problems (1) Respiratory failure Current Visit: Yes Status: Acute Qualifiers: Chronicity: acute Respiratory failure complication: hypoxia Qualified Code(s): J96.01 - Acute respiratory failure with hypoxia Plan to address problem: Supplemental oxygen, nebulizer therapy, chest X ray, diuresis, urgent dialysis, pulse oximetry, NIPPV as clinically indicated. (2) End stage renal disease Current Visit: Yes Status: Acute Plan to address problem: Nephrology consulted in ED, urgent dialysis, admit to medical floor, renal diet , strict i/o to ensure negative fluid balance (3) Volume overload Current Visit: Yes Status: Acute Qualifiers: Hypervolemia type: unspecified Qualified Code(s): E87.70 - Fluid overload, unspecified Plan to address problem: diuresis, urgent dialysis, strict I/O, fluid restriction. (4) Hyperkalemia Current Visit: No Status: Acute Plan to address problem: lasix, urgent dialysis, serial ekg, No significant changes. (5) Metabolic acidosis Current Visit: Yes Status: Acute Plan to address problem: Bicarbonate administered in ED, urgent dialysis (6) DVT prophylaxis Current Visit: Yes Status: Acute Plan to address problem: SCD to BLE while in bed
[2018-03-02] MEDS ORDERED: NON-FORMULARY (Sevelamer Carbonate [Renvela] 2 TAB) PO SCH (12:00)
[2018-03-02] MEDS ORDERED: SUCROFERRIC OXYHYDROXIDE PO SCH (12:00)
[2018-03-02] MEDS ORDERED: LANTUS SUB-Q SCH ×2 (14:00→22:00)
--- NOTE | 2018-03-02 15:28 | Consultation ---
History of Present Illness - History of Present Illness Thank you for the consultation patient was evaluated today. Source of information; History of presenting illness; Patient is a 62-year-old male who Has been on maintenance hemodialysis for end-stage renal disease at [facility] Patient has not been able to dialyze since last Thursday when he was at the dialysis center, and due to recent issues with fluttering of the dialysis facility he has not been able to be dialyze even yesterday. Patient came to the hospital with complaint of shortness of breath and wasn't feeling very well , he does have significant edema of both lower extremity. No complaints of any chest pain pressure he wants to go home after dialysis and get his second treatment tomorrow I actually came to see him on hemodialysis supervised the dialysis treatment admit changes in the treatment regimen including increasing his ultrafiltration goal to 4 kg discussed with Esperanza Past medical history significant for End-stage renal disease Anemia and end-stage renal disease Secondary hyperparathyroidism Fluid overload Doubtful compliance Current allergies: No known drug allergies Home medication: Clonidine, sodium bicarbonate, Renvela, Procardia, Lantus, Imdur, Lasix, Lexapro , Sensipar, velphoro saphris Social history no recent history of any alcohol drug or tobacco use Family history: Noncontributory for renal related to his daughter Review of system positive for unable to dialyze yesterday due to issue the dialysis facility complaints of shortness of breath swelling in both lower extremity poor compliance with fluid sodium patient admits being noncompliant All other review of system are negative Labs and x-rays: Were reviewed from the current chart Physical examination General: No acute distress HEENT: Oral mucosa moist no pharyngeal erythema no pallor or icterus no uremic order Neck: Supple no evidence of any thyromegaly trachea midline no JVD Chest: Clear to auscultation no crackles are also wheezes anteriorly Heart: Regular rate and rhythm S1-S2 heard no S3-S4 Abdomen: Soft nontender no renal bruit no CVA tenderness no suprapubic fullness no organomegaly Extremity:2+ edema dry skin no peripheral cyanosis pulses palpable Neurological: Alert awake follows command grossly nonfocal examination Back: Nontender thoracolumbar spine Musculoskeletal: No joint effusion noted Skin: No petechial rash/noted Assessment and plan end-stage renal disease: Patient is currently in maintenance dialysis: Discussed counseled and educated patient appears to be noncompliant with sodium restriction fluid restriction will increase his ultrafiltration goal to about 4 kg and if he tolerates dialysis well and feeling well he can be discharged from renal standpoint as long as stable to receive his another dialysis treatment tomorrow Anemia and end-stage renal disease: To monitor and follow, hemoglobin currently 10.8 partly dilutional Hyperkalemia 5.8 resulting from missing dialysis treatment patient is being dialyzed today Secondary hyperparathyroidism: Patient was counseled and educated to keep his phosphorus under 5.5 take his binders Volume overload with 2+ peripheral edema no JVD, counseled and educated to limit his fluid intake to no more than 20-30 ounces per day he will need additional hemodialysis and ultrafiltrate treatment tomorrow morning Hypertension volume: Counseled and educated reduced dietary sodium take blood pressure medication monitor blood pressure from home to keep under 140 Compliance is doubtful here adequately counseled and educated to make necessary lifestyle changes Nature and severity of renal-related issues were discussed with patient, all questions were answered and simple Green[place]ic Patient does have good understanding about renal-related issues. Counseled and educated to get further education from [employer] and related links, and upon discharge to make a follow-up appointment in the office We'll continue to follow and make recommendations from renal standpoint. If you have any questions please feel free to contact me at [phone] Thank you for the consultation. Medications and Allergies Allergies Allergy/AdvReac Type Severity Reaction Status Date / Time No Known Allergies Allergy Verified 11/09/17 07:49 Home Medications Medication Instructions Recorded Confirmed Last Taken Type Asenapine Maleate [Saphris] 10 mg SL QPM 11/09/17 03/02/18 11/08/17 History Cinacalcet [Sensipar] 30 mg PO QDAY 11/09/17 03/02/18 11/08/17 History Escitalopram Oxalate [Lexapro] 20 mg PO DAILY 11/09/17 03/02/18 11/08/17 History Furosemide [Lasix TAB] 40 mg PO QDAY 11/09/17 03/02/18 11/08/17 History ISOSORBIDE MONOnitrate [Imdur ER] 30 mg PO DAILY 11/09/17 03/02/18 11/08/17 History Sevelamer Carbonate [Renvela] 2 tab PO TIDWM 11/09/17 03/02/18 11/08/17 History Sodium Bicarbonate 2 tab PO BID 11/09/17 03/02/18 11/08/17 History Sucroferric Oxyhydroxide [Velphoro] 3 tab PO TIDWM 11/09/17 03/02/18 11/08/17 History Insulin Glargine [Lantus VIAL] 15 units SUB-Q DAILY #1000 units 02/24/18 Unknown Rx NIFEdipine XL [Procardia Xl] 60 mg PO QDAY #30 tablet 02/24/18 03/02/18 Unknown Rx cloNIDine [Catapres] 0.1 mg PO Q12HR #60 tablet 02/24/18 03/02/18 Unknown Rx Active Meds: Active Medications Acetaminophen (Tylenol) 650 mg PO Q4H PRN PRN Reason: Pain MILD(1-3)/Fever >100.5/LEONARD Albuterol (Proventil) 2.5 mg IH Q4HRT PRN PRN Reason: Shortness Of Breath Cinacalcet (Sensipar) 30 mg PO QDAY SACHI Clonidine HCl (Catapres) 0.1 mg PO Q12HR SACHI Escitalopram Oxalate (Lexapro) 20 mg PO DAILY SACHI Furosemide (Lasix) 40 mg PO QDAY SACHI Insulin Glargine (Lantus) 15 units SUB-Q HS SACHI Isosorbide Mononitrate (Imdur) 30 mg PO DAILY [facility] Miscellaneous Medication (Asenapine Maleate [Saphris]) 10 mg SL QPM SACHI Miscellaneous Medication (Sucroferric Oxyhydroxide [Velphoro]) 3 tab PO TIDWM [facility] Last Admin: 03/02/18 14:14 Dose: Not Given Nifedipine (Procardia Xl) 60 mg PO QDAY SACHI Ondansetron HCl (Zofran) 4 mg IV Q8H PRN PRN Reason: Nausea And Vomiting Sevelamer Carbonate (Renvela) 1,600 mg PO AC SACHI Sodium Bicarbonate (Sodium Bicarbonate) 1,300 mg PO BID SACHI Sodium Chloride (Sodium Chloride Flush Syringe 10 Ml) 10 ml IV BID SACHI Sodium Chloride (Sodium Chloride Flush Syringe 10 Ml) 10 ml IV PRN PRN PRN Reason: LINE FLUSH Exam - Vital Signs Vital signs: Vital Signs Temp Pulse Resp BP Pulse Ox 97.4 F L 81 22 182/65 86 03/02/18 09:39 03/02/18 09:39 03/02/18 09:39 03/02/18 09:39 03/02/18 09:39 Results - Lab Results 03/02/18 10:16 03/02/18 10:16 Most recent lab results Calcium 8.6 mg/dL (8.4-10.2) 03/02/18 10:16
[2018-03-02] MEDS ORDERED: NACL 0.9% 100 ML IV PRN (16:07)
[2018-03-02] MEDS ORDERED: ASENAPINE MALEATE 10 MG SL SCH (18:00)
[2018-03-02] MEDS ORDERED: NACL 0.9 (PRIMING MACHINE ONLY DIALYSIS) MC ONE (18:32)
[2018-03-02] MEDS: CATAPRES PO SCH (23:11)
[2018-03-02] MEDS: RENVELA PO SCH (23:13)
[2018-03-02] MEDS: SODIUM BICARBONATE PO SCH (23:14)
[2018-03-02] MEDS: SODIUM CHLORIDE FLUSH SYRINGE 10 ML IV SCH (23:19)
--- NOTE | 2018-03-03 09:13 | Progress Note ---
Subjective Interval history: Patient was seen today for follow-up, regarding multiple renal related issues Events of 24 hours were noted, has had hemodialysis yesterday ultrafiltration approximately 4 kg has had issues with the cardiac rhythm Patient denies any complaints of chest pain pressure or shortness of breath Interdisciplinary Notes were also reviewed from past 24 hours Vitals labs intake output medications: Reviewed Past medical history: Reviewed Allergies: Reviewed Social history: Reviewed Family history: Reviewed Physical examination Gen.: No acute distress HEENT: Mild pallor nor icterus no uremic order Neck: Supple without any mass or JVD Chest: Few bilateral crackles Heart: Regular rate and rhythm S1 and S2 heard Abdomen: Soft nontender no suprapubic fullness no masses no renal bruit Extremity: Edema still has 1+ edema , no peripheral cyanosis Skin: No petechial rashes dry skin Assessment and plan End-stage renal disease: Patient very poorly compliant has had hemodialysis done yesterday excessive fluid overload Will consider giving him and ultrafiltration treatment today, if okay with cardiology Noted to have frequent PVCs yesterday after dialysis patient was kept overnight he does need to see cardiology, will do basic metabolic profile as well as migration level today dialysis patients in general or higher risk for cardiac event, Metabolic acidosis: Will do a follow-up labs he is status post hemodialysis Malnutrition present upon admission patient adequately counseled and educated to improve dietary intake of protein Dietary noncompliance; patient has had significant fluid overload in my opinion at least 8-10 kg given that he has 2+ peripheral edema Anemia in end-stage renal disease: To monitor and follow Secondary hyperparathyroidism will check phosphorus and PTH level currently calcium is around 8.6 Hypertension. Remains accelerated patient can be considered for ultrafiltration treatment today Had a detailed discussion with patient about renal care plan, Significant lab finding were discussed with patient unexplained and simple Khmer Patient does have good understanding about renal related issues We'll continue to follow and make recommendation from renal standpoint Objective - Vital Signs Vital signs: Vital Signs - 12hr 03/02/18 03/02/18 03/03/18 21:50 23:11 04:00 Temperature 99.3 F 97.9 F Pulse Rate 62 68 64 Respiratory 18 20 Rate Blood Pressure 153/49 152/65 163/54 O2 Sat by Pulse 96 97 Oximetry 03/03/18 07:37 Temperature 98.7 F Pulse Rate 59 L Respiratory 19 Rate Blood Pressure 176/55 O2 Sat by Pulse 96 Oximetry - Lab 03/02/18 10:16 03/02/18 10:16 Most recent lab results Calcium 8.6 mg/dL (8.4-10.2) 03/02/18 10:16
[2018-03-03] MEDS: RENVELA PO SCH ×3 (09:32→17:00)
[2018-03-03] MEDS: CATAPRES PO SCH (09:34)
[2018-03-03] MEDS: SODIUM CHLORIDE FLUSH SYRINGE 10 ML IV SCH (09:36)
[2018-03-03] MEDS: SODIUM BICARBONATE PO SCH (09:36)
--- NOTE | 2018-03-03 09:41 | Consultation ---
History of Present Illness Consult date: 03/03/18 Requesting physician: OTIS AGUILAR Consult reason: other (PVCs) History of present illness: The patient is a 62 year old male with a history of HTN, DM, ESRD on HD who presented to the ER yesterday with complaints of worsening shortness of breath and LE edema over the past one day. He missed dialysis this past Thursday. He denies any chest pain, palpitations, nausea, vomiting, dizziness, lightheadedness or pre-syncope. Yesterday he underwent emergent dialysis and was noted to have frequent PVCs toward the end of dialysis. He was asymptomatic. Potassium 5.8 prior to HD yesterday. Repeat potassium level pending. He was placed on telemetry after dialysis yesterday and has had no further PVCs. Past History Past Medical History: diabetes, ESRD, hypertension Past Surgical History: Other (RUE AVF) Social history: . denies: smoking, alcohol abuse, prescription drug abuse Family history: hypertension Medications and Allergies Allergies Allergy/AdvReac Type Severity Reaction Status Date / Time No Known Allergies Allergy Verified 11/09/17 07:49 Home Medications Medication Instructions Recorded Confirmed Last Taken Type Asenapine Maleate [Saphris] 10 mg SL QPM 11/09/17 03/02/18 11/08/17 History Cinacalcet [Sensipar] 30 mg PO QDAY 11/09/17 03/02/18 11/08/17 History Escitalopram Oxalate [Lexapro] 20 mg PO DAILY 11/09/17 03/02/18 11/08/17 History Furosemide [Lasix TAB] 40 mg PO QDAY 11/09/17 03/02/18 11/08/17 History ISOSORBIDE MONOnitrate [Imdur ER] 30 mg PO DAILY 11/09/17 03/02/18 11/08/17 History Sevelamer Carbonate [Renvela] 2 tab PO TIDWM 11/09/17 03/02/18 11/08/17 History Sodium Bicarbonate 2 tab PO BID 11/09/17 03/02/18 11/08/17 History Sucroferric Oxyhydroxide [Velphoro] 3 tab PO TIDWM 11/09/17 03/02/18 11/08/17 History Insulin Glargine [Lantus VIAL] 15 units SUB-Q DAILY #1000 units 02/24/18 Unknown Rx NIFEdipine XL [Procardia Xl] 60 mg PO QDAY #30 tablet 02/24/18 03/02/18 Unknown Rx cloNIDine [Catapres] 0.1 mg PO Q12HR #60 tablet 02/24/18 03/02/18 Unknown Rx Active Meds: Active Medications Acetaminophen (Tylenol) 650 mg PO Q4H PRN PRN Reason: Pain MILD(1-3)/Fever >100.5/LEONARD Albuterol (Proventil) 2.5 mg IH Q4HRT PRN PRN Reason: Shortness Of Breath Cinacalcet (Sensipar) 30 mg PO QDAY [facility] Last Admin: 03/03/18 09:35 Dose: 30 mg Clonidine HCl (Catapres) 0.1 mg PO Q12HR [facility] Last Admin: 03/03/18 09:34 Dose: 0.1 mg Escitalopram Oxalate (Lexapro) 20 mg PO DAILY [facility] Last Admin: 03/03/18 09:35 Dose: 20 mg Furosemide (Lasix) 40 mg PO QDAY [facility] Last Admin: 03/03/18 09:34 Dose: 40 mg Sodium Chloride (Nacl 0.9%) 100 mls @ 999 mls/hr IV BENJAMIN PRN PRN Reason: Hypotension Insulin Glargine (Lantus) 15 units SUB-Q HS [facility] Last Admin: 03/02/18 23:16 Dose: 15 units Isosorbide Mononitrate (Imdur) 30 mg PO DAILY [facility] Last Admin: 03/03/18 09:35 Dose: 30 mg Miscellaneous Medication (Asenapine Maleate [Saphris]) 10 mg SL QPM [facility] Miscellaneous Medication (Sucroferric Oxyhydroxide [Velphoro]) 3 tab PO TIDWM [facility] Last Admin: 03/02/18 14:14 Dose: Not Given Nifedipine (Procardia Xl) 60 mg PO QDAY [facility] Last Admin: 03/03/18 09:36 Dose: 60 mg Ondansetron HCl (Zofran) 4 mg IV Q8H PRN PRN Reason: Nausea And Vomiting Sevelamer Carbonate (Renvela) 1,600 mg PO [facility] Last Admin: 03/03/18 09:32 Dose: 1,600 mg Sodium Bicarbonate (Sodium Bicarbonate) 1,300 mg PO BID [facility] Last Admin: 03/03/18 09:36 Dose: 1,300 mg Sodium Chloride (Sodium Chloride Flush Syringe 10 Ml) 10 ml IV BID [facility] Last Admin: 03/03/18 09:36 Dose: 10 ml Sodium Chloride (Sodium Chloride Flush Syringe 10 Ml) 10 ml IV PRN PRN PRN Reason: LINE FLUSH Review of Systems Constitutional: no fever, no chills Ears, nose, mouth and throat: no nasal congestion Cardiovascular: shortness of breath, dyspnea on exertion, leg edema, no chest pain, no palpitations, no syncope Respiratory: shortness of breath, dyspnea on exertion, no cough, no congestion, no wheezing Gastrointestinal: no nausea, no vomiting, no diarrhea Genitourinary Male: no dysuria, no hematuria Musculoskeletal: no neck stiffness, no neck pain, no myalgias Integumentary: no rash, no pruritis Neurological: no parathesias, no numbness, no tingling, no headaches Endocrine: no cold intolerance, no heat intolerance Hematologic/Lymphatic: no easy bruising, no easy bleeding Allergic/Immunologic: no urticaria, no wheezing Physical Examination Vital Signs Temp Pulse Resp BP Pulse Ox 97.4 F L 81 22 182/65 86 03/02/18 09:39 03/02/18 09:39 03/02/18 09:39 03/02/18 09:39 03/02/18 09:39 General appearance: no acute distress HEENT: Positive: PERRL, Normocephaly, Mucus Membranes Moist Neck: Positive: neck supple, trachea midline Cardiac: Positive: Reg Rate and Rhythm, S1/S2 Lungs: Positive: clear to auscultation Neuro: Positive: Grossly Intact Abdomen: Positive: Soft, Active Bowel Sounds. Negative: Tender Skin: Positive: Clear. Negative: Rash Extremities: Present: normal, +1 Edema (bilateral lower legs) Results 03/02/18 10:16 03/02/18 10:16 Cardiac Enzymes 03/02/18 03/02/18 03/02/18 Range/Units 10:16 10:16 14:48 WBC 9.2 (4.5-11.0) K/mm3 RBC 3.26 L (3.65-5.03) M/mm3 Hgb 10.9 L (11.8-15.2) gm/dl Hct 33.8 L (35.5-45.6) % MCV 104 H (84-94) fl MCH 33 H (28-32) pg MCHC 32 (32-34) % RDW 13.5 (13.2-15.2) % Plt Count 199 (140-440) K/mm3 Lymph % (Auto) 5.8 L (13.4-35.0) % Talbot % (Auto) 4.6 (0.0-7.3) % Eos % (Auto) 1.0 (0.0-4.3) % Baso % (Auto) 0.4 (0.0-1.8) % Lymph # 0.5 L (1.2-5.4) K/mm3 Talbot # 0.4 (0.0-0.8) K/mm3 Eos # 0.1 (0.0-0.4) K/mm3 Baso # 0.0 (0.0-0.1) K/mm3 Seg Neutrophils % 88.2 H (40.0-70.0) % Seg Neutrophils # 8.1 H (1.8-7.7) K/mm3 Sodium 139 (137-145) mmol/L Potassium 5.8 H (3.6-5.0) mmol/L Chloride 98.1 (98-107) mmol/L Carbon Dioxide 20 L (22-30) mmol/L Anion Gap 27 mmol/L BUN 57 H (9-20) mg/dL Creatinine 9.6 H (0.8-1.5) mg/dL Estimated GFR 6 ml/min BUN/Creatinine Ratio 6 % Glucose 182 H (75-100) mg/dL POC Glucose 103 (70-105) Calcium 8.6 (8.4-10.2) mg/dL Total Bilirubin 0.50 (0.1-1.2) mg/dL AST 10 (5-40) units/L ALT 7 (7-56) units/L Alkaline Phosphatase 110 (35-129) units/L Total Protein 6.8 (6.3-8.2) g/dL Albumin 3.8 L (3.9-5) g/dL Albumin/Globulin Ratio 1.3 % 03/02/18 03/03/18 Range/Units 22:25 06:04 WBC (4.5-11.0) K/mm3 RBC (3.65-5.03) M/mm3 Hgb (11.8-15.2) gm/dl Hct (35.5-45.6) % MCV (84-94) fl MCH (28-32) pg MCHC (32-34) % RDW (13.2-15.2) % Plt Count (140-440) K/mm3 Lymph % (Auto) (13.4-35.0) % Talbot % (Auto) (0.0-7.3) % Eos % (Auto) (0.0-4.3) % Baso % (Auto) (0.0-1.8) % Lymph # (1.2-5.4) K/mm3 Talbot # (0.0-0.8) K/mm3 Eos # (0.0-0.4) K/mm3 Baso # (0.0-0.1) K/mm3 Seg Neutrophils % (40.0-70.0) % Seg Neutrophils # (1.8-7.7) K/mm3 Sodium (137-145) mmol/L Potassium (3.6-5.0) mmol/L Chloride (98-107) mmol/L Carbon Dioxide (22-30) mmol/L Anion Gap mmol/L BUN (9-20) mg/dL Creatinine (0.8-1.5) mg/dL Estimated GFR ml/min BUN/Creatinine Ratio % Glucose (75-100) mg/dL POC Glucose 110 H 166 H (70-105) Calcium (8.4-10.2) mg/dL Total Bilirubin (0.1-1.2) mg/dL AST (5-40) units/L ALT (7-56) units/L Alkaline Phosphatase (35-129) units/L Total Protein (6.3-8.2) g/dL Albumin (3.9-5) g/dL Albumin/Globulin Ratio % CBC 03/02/18 Range/Units 10:16 WBC 9.2 (4.5-11.0) K/mm3 RBC 3.26 L (3.65-5.03) M/mm3 Hgb 10.9 L (11.8-15.2) gm/dl Hct 33.8 L (35.5-45.6) % Plt Count 199 (140-440) K/mm3 Lymph # 0.5 L (1.2-5.4) K/mm3 Talbot # 0.4 (0.0-0.8) K/mm3 Eos # 0.1 (0.0-0.4) K/mm3 Baso # 0.0 (0.0-0.1) K/mm3 Comprehensive Metabolic Panel 03/02/18 Range/Units 10:16 Sodium 139 (137-145) mmol/L Potassium 5.8 H (3.6-5.0) mmol/L Chloride 98.1 (98-107) mmol/L Carbon Dioxide 20 L (22-30) mmol/L BUN 57 H (9-20) mg/dL Creatinine 9.6 H (0.8-1.5) mg/dL Glucose 182 H (75-100) mg/dL Calcium 8.6 (8.4-10.2) mg/dL AST 10 (5-40) units/L ALT 7 (7-56) units/L Alkaline Phosphatase 110 (35-129) units/L Total Protein 6.8 (6.3-8.2) g/dL Albumin 3.8 L (3.9-5) g/dL - Imaging and Cardiology Echo: pending, report reviewed (07/2014: EF 55-60%, impaired relaxation ) EKG: pending EKG interpretations - Telemetry EKG Rhythm: Sinus Rhythm Assessment and Plan Assessment: PVCs during dialysis Hyperkalemia Volume overload (missed HD on 03/01) ESRD on HD Hypertension Diabetes Anemia Plan: No further PVCs noted after dialysis was completed yesterday. Obtain repeat BMP and magnesium level. Await echo findings. Further recommendations to follow. The patient has been seen in conjunction with Dr. Granda who agrees with the assessment and plan of care.
[2018-03-03] MEDS ORDERED: IMDUR PO SCH (10:00)
[2018-03-03] MEDS ORDERED: SENSIPAR PO SCH (10:00)
[2018-03-03] MEDS ORDERED: LEXAPRO PO SCH (10:00)
[2018-03-03] MEDS ORDERED: LASIX PO SCH (10:00)
[2018-03-03] MEDS ORDERED: NON-FORMULARY (Escitalopram Oxalate [Lexapro] 20 MG) PO SCH (10:00)
[2018-03-03] MEDS ORDERED: PROCARDIA XL PO SCH (10:00)
[2018-03-03] MEDS ORDERED: NACL 0.9% 100 ML IV PRN (10:28)
[2018-03-03] MEDS ORDERED: NACL 0.9 (PRIMING MACHINE ONLY DIALYSIS) MC ONE (14:46)
--- NOTE | 2018-03-03 16:51 | Progress Note ---
Assessment and Plan Assessment and Plan - Patient Problems (1) Respiratory failure Current Visit: Yes Status: Acute Qualifiers: Chronicity: acute Respiratory failure complication: hypoxia Qualified Code(s): J96.01 - Acute respiratory failure with hypoxia Plan to address problem: Supplemental oxygen, nebulizer therapy, chest X ray, diuresis, urgent dialysis, pulse oximetry, NIPPV as clinically indicated. (2) End stage renal disease Current Visit: Yes Status: Acute Plan to address problem: Nephrology consulted in ED, urgent dialysis, admit to medical floor, renal diet , strict i/o to ensure negative fluid balance (3) Volume overload Current Visit: Yes Status: Acute Qualifiers: Hypervolemia type: unspecified Qualified Code(s): E87.70 - Fluid overload, unspecified Plan to address problem: diuresis, urgent dialysis, strict I/O, fluid restriction. (4) Hyperkalemia Current Visit: No Status: Acute Plan to address problem: lasix, urgent dialysis, serial ekg, No significant changes. (5) Metabolic acidosis Current Visit: Yes Status: Acute Plan to address problem: Bicarbonate administered in ED, urgent dialysis (6) DVT prophylaxis Current Visit: Yes Status: Acute Plan to address problem: SCD to BLE while in bed Subjective Date of service: 03/03/18 Principal diagnosis: Ac Resp failure Interval history: Sx better Objective - Constitutional Vitals: Vital Signs - 12hr 03/03/18 03/03/18 03/03/18 07:37 09:02 09:34 Temperature 98.7 F Pulse Rate 59 L Respiratory 19 Rate Blood Pressure 176/55 173/55 O2 Sat by Pulse 96 95 Oximetry O2 Sat by Pulse Oximetry [ Anterior Bilateral Throughout] 03/03/18 03/03/18 03/03/18 09:35 11:45 11:50 Temperature 98.4 F Pulse Rate 58 L 57 L Respiratory 18 Rate Blood Pressure 173/55 134/63 142/70 O2 Sat by Pulse Oximetry O2 Sat by Pulse 98 Oximetry [ Anterior Bilateral Throughout] 03/03/18 03/03/18 03/03/18 12:00 12:15 12:30 Temperature Pulse Rate 57 L 56 L 57 L Respiratory Rate Blood Pressure 144/67 152/65 125/60 O2 Sat by Pulse Oximetry O2 Sat by Pulse Oximetry [ Anterior Bilateral Throughout] 03/03/18 03/03/18 03/03/18 12:45 13:00 13:15 Temperature Pulse Rate 55 L 57 L 55 L Respiratory Rate Blood Pressure 150/65 144/73 145/64 O2 Sat by Pulse Oximetry O2 Sat by Pulse Oximetry [ Anterior Bilateral Throughout] 03/03/18 03/03/18 03/03/18 13:30 13:45 14:00 Temperature Pulse Rate 57 L 56 L 56 L Respiratory Rate Blood Pressure 148/69 124/60 116/68 O2 Sat by Pulse Oximetry O2 Sat by Pulse Oximetry [ Anterior Bilateral Throughout] 03/03/18 03/03/18 03/03/18 14:15 14:30 14:45 Temperature Pulse Rate 56 L 57 L 57 L Respiratory Rate Blood Pressure 135/55 128/56 132/54 O2 Sat by Pulse Oximetry O2 Sat by Pulse Oximetry [ Anterior Bilateral Throughout] 03/03/18 03/03/18 14:50 15:30 Temperature 97.9 F Pulse Rate 55 L 56 L Respiratory 18 Rate Blood Pressure 112/55 123/73 O2 Sat by Pulse Oximetry O2 Sat by Pulse 98 Oximetry [ Anterior Bilateral Throughout] General appearance: Present: no acute distress, well-nourished - EENT Eyes: PERRL, EOM intact ENT: hearing intact, clear oral mucosa Ears: bilateral: normal - Neck Neck: supple, normal ROM - Respiratory Respiratory effort: normal Respiratory: bilateral: CTA - Breasts Breasts: normal - Cardiovascular Rhythm: regular Heart Sounds: Present: S1 & S2. Absent: gallop, rub Extremities: pulses intact, No edema, normal color, Full ROM - Gastrointestinal General gastrointestinal: Present: soft, non-tender, non-distended, normal bowel sounds - Genitourinary Male genitourinary: normal - Integumentary Integumentary: clear, warm, dry - Musculoskeletal Musculoskeletal: 1, strength equal bilaterally - Neurologic Neurologic: moves all extremities - Psychiatric Psychiatric: memory intact, appropriate mood/affect, intact judgment & insight - Labs CBC & Chem 7: 03/02/18 10:16 03/02/18 10:16 Labs: Abnormal lab results 03/02/18 03/03/18 Range/Units 22:25 06:04 POC Glucose 110 H 166 H (70-105)
--- NOTE | 2018-03-03 17:06 | Discharge Summary ---
Providers - Providers Date of Admission: 03/02/18 11:42 Date of discharge: 03/03/18 Attending physician: ZHEN MONTANEZ 03/02/18 15:02 Consult to Physician [CONS] Stat Comment: Consulting Provider: CHICHI ORDAZ Physician Instructions: Reason For Exam: esrd 03/02/18 20:38 Consult to Cardiology [CONS] Routine Consulting Provider: NATACHA CUMMINGS Reason For Exam: PVC's during dialysis Primary care physician: CHICHI ORDAZ Hospitalization Condition: Stable Hospital course: Assessment and Plan - Patient Problems (1) Respiratory failure Current Visit: Yes Status: Acute Qualifiers: Chronicity: acute Respiratory failure complication: hypoxia Qualified Code(s): J96.01 - Acute respiratory failure with hypoxia Improved al lot after HD.O2 saturations normal will d/c (2) End stage renal disease Current Visit: Yes Status: Acute Plan to address problem: Hemo dialysis done- a lot better. (3) Volume overload Current Visit: Yes Status: Acute Qualifiers: Hypervolemia type: unspecified Qualified Code(s): E87.70 - Fluid overload, unspecified Plan to address problem: Improved after HD, strict I/O, fluid restriction. (4) Hyperkalemia Current Visit: No Status: Acute Plan to address problem: Improved (5) Metabolic acidosis Current Visit: Yes Status: Acute Plan to address problem: Bicarbonate administered in ED, urgent dialysis (6) DVT prophylaxis Current Visit: Yes Status: Acute Plan to address problem: SCD to BLE while in bed Disposition: DC-01 TO HOME OR SELFCARE Core Measure Documentation - Palliative Care Palliative Care/ Comfort Measures: Not Applicable - Core Measures Any of the following diagnoses?: none Exam - Constitutional Vitals: Temp Pulse Resp BP Pulse Ox 97.9 F 56 L 18 123/73 98 03/03/18 15:30 03/03/18 15:30 03/03/18 15:30 03/03/18 15:30 03/03/18 15:30 General appearance: Present: no acute distress, well-nourished - EENT Eyes: Present: PERRL ENT: hearing intact, clear oral mucosa - Neck Neck: Present: supple, normal ROM - Respiratory Respiratory effort: normal Respiratory: bilateral: CTA - Cardiovascular Heart Sounds: Present: S1 & S2. Absent: rub, click - Extremities Extremities: pulses symmetrical, No edema Peripheral Pulses: within normal limits - Abdominal General gastrointestinal: Present: soft, non-tender, non-distended, normal bowel sounds Male genitourinary: Present: normal - Integumentary Integumentary: Present: clear, warm, dry - Musculoskeletal Musculoskeletal: gait normal, strength equal bilaterally - Psychiatric Psychiatric: appropriate mood/affect, intact judgment & insight - Neurologic Neurologic: CNII-XII intact, moves all extremities Plan Follow up with: PRIMARY CARE, [Referring] - 3-5 Days
[2018-03-03 17:30] LABS: Calcium 8.4 mg/dL (8.4-10.2)
[2018-03-03 18:04] VITALS: BP 140/45
== END 2018-03-03 18:40 | disposition home health service (06) | DRG 189 ==
LOC: ED 09:35 → 3A 11:42
PROVIDERS: ADMIT Internal Medicine; ATTEND Internal Medicine
PROC: 5A1D70Z Performance of Urinary Filtration, Intermittent, Less than 6 Hours Per Day (ICD-10-PCS; principal; 2018-03-02)
PROC: 5A1D70Z Performance of Urinary Filtration, Intermittent, Less than 6 Hours Per Day (ICD-10-PCS; 2018-03-03)
DX: J96.01 Acute respiratory failure with hypoxia (principal); N18.6 End stage renal disease; I12.0 Hypertensive chronic kidney disease with stage 5 chronic kidney disease or end stage renal disease; N25.81 Secondary hyperparathyroidism of renal origin; E46 Unspecified protein-calorie malnutrition; E87.2 Acidosis; E87.70 Fluid overload, unspecified; E87.5 Hyperkalemia; E11.22 Type 2 diabetes mellitus with diabetic chronic kidney disease; F20.9 Schizophrenia, unspecified; D63.1 Anemia in chronic kidney disease; I49.3 Ventricular premature depolarization; Z99.2 Dependence on renal dialysis; Z87.891 Personal history of nicotine dependence; Z79.899 Other long term (current) drug therapy; Z68.35 Body mass index [BMI] 35.0-35.9, adult
CPT/HCPCS: 36415; 71045; 80048; 80053; 82962; 83735; 85025; 93005; 93010; 96374; J1815; J1940; J7030